=== PATIENT | male | born 1960 | race Caucasian/White ===

== ENCOUNTER 2020-06-09 17:11 | Inpatient (IN) | payer BC ==
[~2020-06-09] VITALS: Ht 182.9 cm; Wt 132.0 kg
[2020-06-09] MEDS ORDERED: DEXAMETHASONE 10 MG/ML VIAL IV ONE (17:45)
[2020-06-09 17:58] LABS: BASOPHILS % 0.7 % (0.0-2.0); EOSINOPHILS % 0.4 % (0.0-5.0); HEMATOCRIT. 54.5 % (42.0-52.0); HEMOGLOBIN. 17.4 g/dL (14.0-18.0); LYMPHOCYTES % 9.4 % (20.0-50.0); MEAN CORPUSCULAR HEMOGLOBIN 30.2 pg (28.0-32.0); MEAN CORPUSCULAR VOLUME 94.5 fL (80.0-94.0); MEAN PLATELET VOLUME 9.6 fl (7.4-10.4); MONOCYTES % 7.5 % (2.0-8.0); PLATELET 158 x1000/uL (130-400); RED BLOOD CELL COUNT 5.77 mill/uL (4.7-6.1); RED CELL DISTRIBUTION WIDTH 16.9 % (11.6-14.6)
[2020-06-09 18:04] LABS: CHLORIDE 103 mEq/L (98-107)
[2020-06-09 18:12] LABS: INR 1.2; PROTHROMBIN TIME 12.4 sec (9.6-11.0)
[2020-06-09 18:37] LABS: CLARITY URINE CLEAR (CLEAR); COLOR URINE YELLOW (YELLOW); KETONES URINE NEGATIVE (NEGATIVE); LEUKOCYTE ESTERASE URINE NEGATIVE (NEGATIVE); NITRITE URINE NEGATIVE (NEGATIVE); OCCULT BLOOD URINE TRACE (NEGATIVE); PH URINE 5.5 (4.5-8.0); PROTEIN URINE 3+ (NEGATIVE); SPECIFIC GRAVITY URINE 1.046 (1.005-1.030)
[2020-06-09] MEDS ORDERED: FUROSEMIDE 20MG/2ML VIAL IVP ONE (18:45)
[2020-06-09] MEDS ORDERED: ASPIRIN 325MG EC TABLET PO ONE (18:45)
[2020-06-10] MEDS ORDERED: ETOMIDATE 2MG/ML 10ML VIAL IV ONE (08:15)
[2020-06-10] MEDS ORDERED: SUCCINYLCHOLINE CHLORIDE 200MG/10ML IV ONE (08:15)
[2020-06-10] MEDS ORDERED: FENTANYL CITRATE/PF 50MCG/ML 2ML VIAL IV ONE (08:15)
[2020-06-10] MEDS ORDERED: PROPOFOL 10MG/ML 100ML 100 ML IV ONE ×2 (08:15→08:30)
[2020-06-10] MEDS ORDERED: PROPOFOL 10MG/ML 100ML 100 ML IV PRN (08:30)
[2020-06-10] MEDS ORDERED: IPRATROPIUM/ALBUTEROL 0.5-3(2.5)MG/3ML NEB HHN PRN (09:30)
[2020-06-10] MEDS ORDERED: AZITHROMYCIN 500 MG TABLET PO NR (09:30)
[2020-06-10] MEDS: ENOXAPARIN 40MG/0.4ML SYR SUBCUT SCH ×2 (10:00→22:08)
[2020-06-10] MEDS: PANTOPRAZOLE SODIUM 40 MG/VIAL IV SCH (10:00)
[2020-06-10] MEDS: CEFTRIAXONE 1 G PREMIX 50 ML IV SCH (10:00)
[2020-06-10] MEDS: DEXAMETHASONE 10 MG/ML VIAL IV SCH (10:15)
[2020-06-10 10:18] LABS: BG BASE EXCESS -0.8 mmol/L (-2.0-2.0); BG CARBOXYHEMOGLOBIN 0.6 % (0.5-1.5); BG FRACTION INSPIRED OXYGEN 100; BG HCO3 ACT 32.1 mmol/L (22.0-26.0); BG METHEMOGLOBIN 0.5 % (0.0-1.5); BG OXYHEMOGLOBIN 94.9 % (94.0-97.0); BG PCO2 92.9 mmHg (35.0-45.0); BG PH 7.157 (7.350-7.450); BG PO2 87.1 mmHg (75.0-100.0); BG SAMPLE SITE RIGHT RADIAL; BG TOTAL HEMOGLOBIN 18.8 g/dL (12.0-18.0); BG VENT MODE VENT - AC
[2020-06-10] MEDS: MIDAZOLAM HCL 100 MG in DEXT 5% WATER 80 ML IV PRN (10:39)
[2020-06-10 12:22] LABS: *AMPHETAMINES SCREEN URINE NEGATIVE (NEGATIVE); *BARBITURATES SCREEN URINE NEGATIVE (NEGATIVE)
[2020-06-10 12:23] LABS: *BENZODIAZEPINES SCREEN URINE NEGATIVE (NEGATIVE); *COCAINE SCREEN URINE NEGATIVE (NEGATIVE); METHADONE URINE SCREEN NEGATIVE (NEGATIVE); OPIATES URINE SCREEN NEGATIVE (NEGATIVE)
[2020-06-10 12:24] LABS: CANNABINOID URINE SCREEN NEGATIVE (NEGATIVE); PHENCYCLIDINE URINE SCREEN NEGATIVE (NEGATIVE)
[2020-06-10 13:34] LABS: BG CARBOXYHEMOGLOBIN 1.3 % (0.5-1.5); BG DEOXYHEMOGLOBIN 6.1 % (0.0-5.0); BG FRACTION INSPIRED OXYGEN 100; BG METHEMOGLOBIN 0.3 % (0.0-1.5); BG OXYGEN SATURATION 93.8 % (92.0-98.5); BG OXYHEMOGLOBIN 92.3 % (94.0-97.0); BG PCO2 67.8 mmHg (35.0-45.0); BG PH 7.318 (7.350-7.450); BG PO2 64.7 mmHg (75.0-100.0); BG SAMPLE SITE RIGHT RADIAL; BG TOTAL HEMOGLOBIN 17.2 g/dL (12.0-18.0); BG TOTAL RESPIRATORY RATE 20 b/min; BG VENT MODE VENT - PRVC
[2020-06-10] MEDS: IPRATROPIUM/ALBUTEROL 0.5-3(2.5)MG/3ML NEB HHN SCH ×2 (16:01→22:14)
[2020-06-10] MEDS: BLOOD SUGAR DIAGNOSTIC STRIP TEST SCH ×2 (17:14→21:17)
[2020-06-10] MEDS: INSULIN LISPRO 100 UNITS/ML SUBCUT SCH ×2 (17:22→21:20)
[2020-06-10 21:18] LABS: HEMOGLOBIN. 15.6 g/dL (14.0-18.0); MEAN CORPUSCULAR HEMOGLOBIN 30.2 pg (28.0-32.0); MEAN CORPUSCULAR VOLUME 94.9 fL (80.0-94.0); PLATELET 155 x1000/uL (130-400); RED BLOOD CELL COUNT 5.17 mill/uL (4.7-6.1); RED CELL DISTRIBUTION WIDTH 16.9 % (11.6-14.6)
[2020-06-10 21:22] LABS: CHLORIDE 102 mEq/L (98-107)
[2020-06-10 21:28] LABS: PHOSPHORUS 3.6 mg/dL (2.5-4.9)
[2020-06-10 22:53] LABS: PLATELET ESTIMATE NORMAL
[2020-06-11] MEDS: IPRATROPIUM/ALBUTEROL 0.5-3(2.5)MG/3ML NEB HHN SCH ×6 (01:19→20:11)
[2020-06-11] MEDS: MIDAZOLAM HCL 100 MG in DEXT 5% WATER 80 ML IV PRN ×2 (04:54→14:31)
[2020-06-11 05:18] LABS: HEMATOCRIT. 50.3 % (42.0-52.0); HEMOGLOBIN. 16.2 g/dL (14.0-18.0); MEAN CORPUSCULAR HEMOGLOBIN 30.3 pg (28.0-32.0); MEAN CORPUSCULAR VOLUME 94.3 fL (80.0-94.0); MEAN PLATELET VOLUME 8.9 fl (7.4-10.4); PLATELET 143 x1000/uL (130-400); RED BLOOD CELL COUNT 5.34 mill/uL (4.7-6.1)
[2020-06-11 05:35] LABS: CHLORIDE 103 mEq/L (98-107)
[2020-06-11] MEDS: BLOOD SUGAR DIAGNOSTIC STRIP TEST SCH ×4 (06:30→20:33)
[2020-06-11] MEDS: INSULIN LISPRO 100 UNITS/ML SUBCUT SCH ×3 (07:00→22:07)
[2020-06-11 09:01] LABS: NUCLEATED RED BLOOD CELLS 1 /100 WBC
[2020-06-11] MEDS ORDERED: LIDOCAINE HCL/PF 1% 2ML VIAL ONE (10:00)
[2020-06-11] MEDS: ENOXAPARIN 40MG/0.4ML SYR SUBCUT SCH ×2 (10:15→20:23)
[2020-06-11] MEDS: PANTOPRAZOLE SODIUM 40 MG/VIAL IV SCH (10:16)
[2020-06-11] MEDS: AZITHROMYCIN 250 MG TABLET PO SCH (10:16)
[2020-06-11] MEDS: DEXAMETHASONE 10 MG/ML VIAL IV SCH (10:16)
[2020-06-11] MEDS: CEFTRIAXONE 1 G PREMIX 50 ML IV SCH (10:30)
[2020-06-11 13:11] LABS: BG BASE EXCESS -0.8 mmol/L (-2.0-2.0); BG CARBOXYHEMOGLOBIN 0.6 % (0.5-1.5); BG DEOXYHEMOGLOBIN 1.3 % (0.0-5.0); BG FRACTION INSPIRED OXYGEN 44; BG HCO3 ACT 25.2 mmol/L (22.0-26.0); BG METHEMOGLOBIN 0.2 % (0.0-1.5); BG OXYGEN SATURATION 98.7 % (92.0-98.5); BG OXYHEMOGLOBIN 97.9 % (94.0-97.0); BG PCO2 46.9 mmHg (35.0-45.0); BG PH 7.348 (7.350-7.450); BG PO2 147.6 mmHg (75.0-100.0); BG SAMPLE SITE RIGHT RADIAL; BG TOTAL HEMOGLOBIN 13.3 g/dL (12.0-18.0); BG VENT MODE NASAL CANNULA
[2020-06-11 14:24] LABS: PLATELET ESTIMATE NORMAL
[2020-06-11] MEDS: FUROSEMIDE 40MG/4ML VIAL IVP SCH (16:13)
[2020-06-11] MEDS: METHYLPREDNISOLONE SOD SUCC 40 MG/ML VIAL IV SCH (20:21)
[2020-06-12] VITALS (14 sets, daily range): BP systolic 115–140; BP diastolic 68–91
[2020-06-12] MEDS: IPRATROPIUM/ALBUTEROL 0.5-3(2.5)MG/3ML NEB HHN SCH ×6 (00:01→20:25)
[2020-06-12] MEDS: MIDAZOLAM HCL 100 MG in DEXT 5% WATER 80 ML IV PRN ×2 (01:38→18:30)
[2020-06-12 05:08] LABS: HEMATOCRIT. 53.1 % (42.0-52.0); HEMOGLOBIN. 17.1 g/dL (14.0-18.0); MEAN CORPUSCULAR HEMOGLOBIN 30.1 pg (28.0-32.0); MEAN CORPUSCULAR VOLUME 93.4 fL (80.0-94.0); MEAN PLATELET VOLUME 9.4 fl (7.4-10.4); PLATELET 140 x1000/uL (130-400); RED BLOOD CELL COUNT 5.69 mill/uL (4.7-6.1); RED CELL DISTRIBUTION WIDTH 16.9 % (11.6-14.6)
[2020-06-12 05:13] LABS: CHLORIDE 102 mEq/L (98-107)
[2020-06-12] MEDS: METHYLPREDNISOLONE SOD SUCC 40 MG/ML VIAL IV SCH ×3 (05:44→20:59)
[2020-06-12] MEDS: BLOOD SUGAR DIAGNOSTIC STRIP TEST SCH ×4 (06:57→21:07)
[2020-06-12] MEDS: INSULIN LISPRO 100 UNITS/ML SUBCUT SCH ×4 (08:09→21:08)
[2020-06-12] MEDS: PANTOPRAZOLE SODIUM 40 MG/VIAL IV SCH (08:10)
[2020-06-12] MEDS: FUROSEMIDE 40MG/4ML VIAL IVP SCH (08:12)
[2020-06-12] MEDS: ENOXAPARIN 40MG/0.4ML SYR SUBCUT SCH ×2 (08:13→21:24)
[2020-06-12] MEDS ORDERED: FUROSEMIDE 20MG/2ML VIAL IVP NR (10:00)
[2020-06-12] MEDS: AZITHROMYCIN 250 MG TABLET PO SCH (10:00)
[2020-06-12 10:05] LABS: BG BASE EXCESS 6.8 mmol/L (-2.0-2.0); BG CARBOXYHEMOGLOBIN 0.5 % (0.5-1.5); BG DEOXYHEMOGLOBIN 8.2 % (0.0-5.0); BG FRACTION INSPIRED OXYGEN 100; BG HCO3 ACT 33.7 mmol/L (22.0-26.0); BG METHEMOGLOBIN 0.3 % (0.0-1.5); BG OXYGEN SATURATION 91.7 % (92.0-98.5); BG PCO2 54.9 mmHg (35.0-45.0); BG PH 7.406 (7.350-7.450); BG PO2 62.8 mmHg (75.0-100.0); BG SAMPLE SITE LEFT RADIAL; BG TOTAL RESPIRATORY RATE 20 b/min; BG VENT MODE PRVC
[2020-06-12] MEDS ORDERED: CEFEPIME 2,000 MG in DEXT 5% WATER 100 ML IV SCH (11:00)
[2020-06-12] MEDS ORDERED: VANCOMYCIN 2,000 MG in DEXT 5% WATER 500 ML IV NR (11:00)
[2020-06-12 16:21] LABS: PLATELET ESTIMATE NORMAL
[2020-06-12] MEDS: FENTANYL CITRATE/PF 2,500 MCG in SODIUM CHLORIDE 0.9% 200 ML IV PRN (17:00)
[2020-06-12] MEDS ORDERED: CANA100T MT (17:50)
[2020-06-12] MEDS ORDERED: LIP40 MT (17:50)
[2020-06-12] MEDS ORDERED: GLIP5TAB12 MT (17:50)
[2020-06-12] MEDS ORDERED: SITA1TAB6 MT (17:50)
[2020-06-12] MEDS: VANCOMYCIN 1250MG in DEXTROSE 5% WATER 250ML IV SCH (18:16)
[2020-06-12] MEDS ORDERED: PNEUMOCOCCAL 23-VAL P-SAC VAC 0.5 ML IM ONE (20:00)
[2020-06-12] MEDS ORDERED: INFLUENZA VACCINE 05/PF 0.5 ML VIAL IM ONE (21:00)
[2020-06-13] VITALS (47 sets, daily range): BP systolic 110–146; BP diastolic 60–78
[2020-06-13] MEDS: IPRATROPIUM/ALBUTEROL 0.5-3(2.5)MG/3ML NEB HHN SCH ×6 (00:34→20:39)
[2020-06-13] MEDS: CEFEPIME 2,000 MG in DEXT 5% WATER 100 ML IV SCH ×2 (00:41→11:45)
[2020-06-13] MEDS: MIDAZOLAM HCL 100 MG in DEXT 5% WATER 80 ML IV PRN ×4 (00:42→21:33)
[2020-06-13] MEDS: FENTANYL CITRATE/PF 2,500 MCG in SODIUM CHLORIDE 0.9% 200 ML IV PRN ×2 (02:44→17:30)
[2020-06-13] MEDS: VANCOMYCIN 1250MG in DEXTROSE 5% WATER 250ML IV SCH ×3 (02:51→18:10)
[2020-06-13] MEDS: METHYLPREDNISOLONE SOD SUCC 40 MG/ML VIAL IV SCH ×3 (03:43→20:46)
[2020-06-13 06:22] LABS: CHLORIDE 102 mEq/L (98-107)
[2020-06-13 06:26] LABS: HEMATOCRIT. 52.6 % (42.0-52.0); HEMOGLOBIN. 17.2 g/dL (14.0-18.0); MEAN CORPUSCULAR HEMOGLOBIN 30.7 pg (28.0-32.0); MEAN CORPUSCULAR VOLUME 94.1 fL (80.0-94.0); MEAN PLATELET VOLUME 9.2 fl (7.4-10.4); PLATELET 137 x1000/uL (130-400); RED BLOOD CELL COUNT 5.59 mill/uL (4.7-6.1); RED CELL DISTRIBUTION WIDTH 17.3 % (11.6-14.6)
[2020-06-13] MEDS: BLOOD SUGAR DIAGNOSTIC STRIP TEST SCH ×3 (08:34→18:03)
[2020-06-13] MEDS: ENOXAPARIN 40MG/0.4ML SYR SUBCUT SCH ×2 (08:54→21:42)
[2020-06-13] MEDS: AZITHROMYCIN 250 MG TABLET PO SCH (08:54)
[2020-06-13] MEDS: FUROSEMIDE 40MG/4ML VIAL IVP SCH (08:54)
[2020-06-13] MEDS: PANTOPRAZOLE SODIUM 40 MG/VIAL IV SCH (08:54)
[2020-06-13] MEDS: INSULIN LISPRO 100 UNITS/ML SUBCUT SCH ×3 (08:57→18:10)
[2020-06-13 09:11] LABS: BG BASE EXCESS 7.1 mmol/L (-2.0-2.0); BG CARBOXYHEMOGLOBIN 0.5 % (0.5-1.5); BG DEOXYHEMOGLOBIN 7.4 % (0.0-5.0); BG FRACTION INSPIRED OXYGEN 100; BG HCO3 ACT 32.8 mmol/L (22.0-26.0); BG METHEMOGLOBIN 0.3 % (0.0-1.5); BG OXYGEN SATURATION 92.5 % (92.0-98.5); BG OXYHEMOGLOBIN 91.8 % (94.0-97.0); BG PCO2 49.3 mmHg (35.0-45.0); BG PH 7.441 (7.350-7.450); BG PO2 64.3 mmHg (75.0-100.0); BG SAMPLE SITE LEFT RADIAL; BG TOTAL HEMOGLOBIN 17.5 g/dL (12.0-18.0); BG TOTAL RESPIRATORY RATE 20 b/min; BG VENT MODE PRVC
[2020-06-13 10:19] LABS: PLATELET ESTIMATE NORMAL
[2020-06-13] MEDS: METOCLOPRAMIDE HCL 10MG/2ML VIAL IV SCH ×2 (11:45→18:11)
[2020-06-13] MEDS: INSULIN GLARGINE UD 100 UNITS/ML SYR SUBCUT SCH ×2 (11:46→21:42)
[2020-06-13] MEDS: BISACODYL 10MG SUPP PR PRN (15:13)
[2020-06-14] VITALS (65 sets, daily range): BP systolic 111–162; BP diastolic 67–119
[2020-06-14] MEDS: IPRATROPIUM/ALBUTEROL 0.5-3(2.5)MG/3ML NEB HHN SCH ×6 (00:25→20:07)
[2020-06-14] MEDS: BLOOD SUGAR DIAGNOSTIC STRIP TEST SCH ×4 (00:26→17:37)
[2020-06-14] MEDS: METOCLOPRAMIDE HCL 10MG/2ML VIAL IV SCH ×4 (00:26→17:44)
[2020-06-14] MEDS: CEFEPIME 2,000 MG in DEXT 5% WATER 100 ML IV SCH ×2 (00:26→12:39)
[2020-06-14] MEDS: INSULIN LISPRO 100 UNITS/ML SUBCUT SCH ×4 (00:27→17:43)
[2020-06-14] MEDS: VANCOMYCIN 1250MG in DEXTROSE 5% WATER 250ML IV SCH (03:30)
[2020-06-14] MEDS: MIDAZOLAM HCL 100 MG in DEXT 5% WATER 80 ML IV PRN ×3 (03:55→20:59)
[2020-06-14] MEDS: METHYLPREDNISOLONE SOD SUCC 40 MG/ML VIAL IV SCH ×3 (04:00→20:14)
[2020-06-14 06:02] LABS: HEMATOCRIT. 51.4 % (42.0-52.0); HEMOGLOBIN. 16.4 g/dL (14.0-18.0); MEAN CORPUSCULAR HEMOGLOBIN 29.9 pg (28.0-32.0); MEAN CORPUSCULAR VOLUME 93.7 fL (80.0-94.0); MEAN PLATELET VOLUME 9.2 fl (7.4-10.4); PLATELET 123 x1000/uL (130-400); RED BLOOD CELL COUNT 5.49 mill/uL (4.7-6.1); RED CELL DISTRIBUTION WIDTH 16.5 % (11.6-14.6)
[2020-06-14 06:10] LABS: CHLORIDE 100 mEq/L (98-107)
[2020-06-14 07:21] LABS: PLATELET ESTIMATE SLIGHTLY DECREASED
[2020-06-14] MEDS: FENTANYL CITRATE/PF 2,500 MCG in SODIUM CHLORIDE 0.9% 200 ML IV PRN ×2 (07:39→22:40)
[2020-06-14] MEDS: INSULIN GLARGINE UD 100 UNITS/ML SYR SUBCUT SCH (09:12)
[2020-06-14] MEDS: PANTOPRAZOLE SODIUM 40 MG/VIAL IV SCH (09:12)
[2020-06-14] MEDS: AZITHROMYCIN 250 MG TABLET PO SCH (09:12)
[2020-06-14] MEDS: FUROSEMIDE 40MG/4ML VIAL IVP SCH (09:12)
[2020-06-14] MEDS: ENOXAPARIN 40MG/0.4ML SYR SUBCUT SCH ×2 (09:12→20:52)
[2020-06-14] MEDS ORDERED: SUCCINYLCHOLINE CHLORIDE 200MG/10ML IV ONE ×3 (20:00→22:00)
[2020-06-14] MEDS ORDERED: ETOMIDATE 2MG/ML 10ML VIAL IV ONE ×2 (20:00→22:00)
[2020-06-14 20:33] LABS: BG BASE EXCESS 1.7 mmol/L (-2.0-2.0); BG CARBOXYHEMOGLOBIN 0.6 % (0.5-1.5); BG FRACTION INSPIRED OXYGEN 100; BG HCO3 ACT 28.2 mmol/L (22.0-26.0); BG METHEMOGLOBIN 0.4 % (0.0-1.5); BG OXYGEN SATURATION 93.9 % (92.0-98.5); BG PCO2 50.4 mmHg (35.0-45.0); BG PH 7.365 (7.350-7.450); BG PO2 72.1 mmHg (75.0-100.0); BG SAMPLE SITE RIGHT RADIAL; BG TOTAL HEMOGLOBIN 17.5 g/dL (12.0-18.0); BG VENT MODE VENT - APRV
[2020-06-14] MEDS ORDERED: INSULIN GLARGINE UD 100 UNITS/ML SYR SUBCUT SCH (22:00)
[2020-06-15] VITALS (91 sets, daily range): BP systolic 100–158; BP diastolic 61–116
[2020-06-15] MEDS: IPRATROPIUM/ALBUTEROL 0.5-3(2.5)MG/3ML NEB HHN SCH ×6 (00:09→20:43)
[2020-06-15] MEDS: CEFEPIME 2,000 MG in DEXT 5% WATER 100 ML IV SCH ×3 (01:28→23:31)
[2020-06-15] MEDS: INSULIN LISPRO 100 UNITS/ML SUBCUT SCH ×5 (01:40→23:33)
[2020-06-15 02:21] LABS: BG BASE EXCESS 2.4 mmol/L (-2.0-2.0); BG FRACTION INSPIRED OXYGEN 100; BG HCO3 ACT 34.2 mmol/L (22.0-26.0); BG METHEMOGLOBIN 0.5 % (0.0-1.5); BG OXYHEMOGLOBIN 93.5 % (94.0-97.0); BG PCO2 85.8 mmHg (35.0-45.0); BG PH 7.219 (7.350-7.450); BG PO2 81.9 mmHg (75.0-100.0); BG SAMPLE SITE RIGHT RADIAL; BG TOTAL HEMOGLOBIN 18.4 g/dL (12.0-18.0); BG VENT MODE VENT - APRV
[2020-06-15] MEDS: PROPOFOL 10MG/ML 100ML 100 ML IV PRN ×2 (03:08→11:06)
[2020-06-15] MEDS: METHYLPREDNISOLONE SOD SUCC 40 MG/ML VIAL IV SCH ×3 (04:29→19:56)
[2020-06-15] MEDS: MIDAZOLAM HCL 100 MG in DEXT 5% WATER 80 ML IV PRN ×3 (04:37→19:56)
[2020-06-15] MEDS: METOCLOPRAMIDE HCL 10MG/2ML VIAL IV SCH ×5 (06:22→23:31)
[2020-06-15 06:25] LABS: HEMATOCRIT. 52.8 % (42.0-52.0); HEMOGLOBIN. 16.8 g/dL (14.0-18.0); MEAN CORPUSCULAR HEMOGLOBIN 29.8 pg (28.0-32.0); MEAN CORPUSCULAR VOLUME 93.3 fL (80.0-94.0); MEAN PLATELET VOLUME 9.2 fl (7.4-10.4); PLATELET 111 x1000/uL (130-400); RED BLOOD CELL COUNT 5.66 mill/uL (4.7-6.1); RED CELL DISTRIBUTION WIDTH 16.8 % (11.6-14.6)
[2020-06-15] MEDS: BLOOD SUGAR DIAGNOSTIC STRIP TEST SCH ×5 (06:53→23:19)
[2020-06-15] MEDS ORDERED: SODIUM BICARBONATE 4% (2.4MEQ) 5ML VIAL IV ONE (07:33)
[2020-06-15] MEDS ORDERED: LIDOCAINE HCL 1% 20ML VIAL (Pyxis) INJ ONE (07:33)
[2020-06-15 08:42] LABS: CHLORIDE 103 mEq/L (98-107)
[2020-06-15 09:10] LABS: BG BASE EXCESS 5.5 mmol/L (-2.0-2.0); BG CARBOXYHEMOGLOBIN 0.6 % (0.5-1.5); BG DEOXYHEMOGLOBIN 4.8 % (0.0-5.0); BG FRACTION INSPIRED OXYGEN 100; BG HCO3 ACT 27.4 mmol/L (22.0-26.0); BG METHEMOGLOBIN 0.4 % (0.0-1.5); BG OXYGEN SATURATION 95.2 % (92.0-98.5); BG OXYHEMOGLOBIN 94.2 % (94.0-97.0); BG PCO2 32.4 mmHg (35.0-45.0); BG PH 7.545 (7.350-7.450); BG PO2 67.7 mmHg (75.0-100.0); BG SAMPLE SITE RIGHT RADIAL; BG TOTAL HEMOGLOBIN 17.5 g/dL (12.0-18.0); BG TOTAL RESPIRATORY RATE 30 b/min; BG VENT MODE VENT- PRVC
[2020-06-15] MEDS: PANTOPRAZOLE SODIUM 40 MG/VIAL IV SCH (09:51)
[2020-06-15] MEDS: ENOXAPARIN 40MG/0.4ML SYR SUBCUT SCH ×2 (09:52→19:56)
[2020-06-15] MEDS: FUROSEMIDE 40MG/4ML VIAL IVP SCH ×2 (10:05→17:49)
[2020-06-15] MEDS: INSULIN GLARGINE UD 100 UNITS/ML SYR SUBCUT SCH ×2 (11:15→23:32)
[2020-06-15 11:31] LABS: PLATELET ESTIMATE SLIGHTLY DECREASED
[2020-06-15] MEDS: FENTANYL CITRATE/PF 2,500 MCG in SODIUM CHLORIDE 0.9% 200 ML IV PRN (12:34)
[2020-06-15] MEDS ORDERED: SUCCINYLCHOLINE CHLORIDE 200MG/10ML IV ONE (20:00)
[2020-06-15] MEDS ORDERED: ETOMIDATE 2MG/ML 10ML VIAL IV ONE (20:00)
[2020-06-16] VITALS (84 sets, daily range): BP systolic 103–158; BP diastolic 55–100
[2020-06-16] MEDS: IPRATROPIUM/ALBUTEROL 0.5-3(2.5)MG/3ML NEB HHN SCH ×6 (00:21→20:17)
[2020-06-16] MEDS: PROPOFOL 10MG/ML 100ML 100 ML IV PRN ×2 (00:26→09:26)
[2020-06-16] MEDS: FENTANYL CITRATE/PF 2,500 MCG in SODIUM CHLORIDE 0.9% 200 ML IV PRN ×2 (00:52→13:36)
[2020-06-16] MEDS: MIDAZOLAM HCL 100 MG in DEXT 5% WATER 80 ML IV PRN ×3 (03:31→23:56)
[2020-06-16] MEDS: BLOOD SUGAR DIAGNOSTIC STRIP TEST SCH ×4 (05:47→23:45)
[2020-06-16] MEDS: METHYLPREDNISOLONE SOD SUCC 40 MG/ML VIAL IV SCH ×4 (05:47→17:45)
[2020-06-16] MEDS: METOCLOPRAMIDE HCL 10MG/2ML VIAL IV SCH ×3 (05:47→17:46)
[2020-06-16] MEDS: INSULIN LISPRO 100 UNITS/ML SUBCUT SCH ×4 (05:48→23:32)
[2020-06-16 06:46] LABS: CHLORIDE 102 mEq/L (98-107)
[2020-06-16 06:48] LABS: HEMOGLOBIN. 16.1 g/dL (14.0-18.0); MEAN CORPUSCULAR HEMOGLOBIN 30.6 pg (28.0-32.0); MEAN PLATELET VOLUME 9.5 fl (7.4-10.4); PLATELET 107 x1000/uL (130-400); RED BLOOD CELL COUNT 5.27 mill/uL (4.7-6.1); RED CELL DISTRIBUTION WIDTH 16.4 % (11.6-14.6)
[2020-06-16 08:22] LABS: BG BASE EXCESS 8.1 mmol/L (-2.0-2.0); BG CARBOXYHEMOGLOBIN 0.2 % (0.5-1.5); BG DEOXYHEMOGLOBIN 3.2 % (0.0-5.0); BG FRACTION INSPIRED OXYGEN 100; BG METHEMOGLOBIN 0.2 % (0.0-1.5); BG OXYGEN SATURATION 96.8 % (92.0-98.5); BG OXYHEMOGLOBIN 96.4 % (94.0-97.0); BG PCO2 30.1 mmHg (35.0-45.0); BG PH 7.602 (7.350-7.450); BG PO2 79.7 mmHg (75.0-100.0); BG SAMPLE SITE LEFT RADIAL; BG TOTAL HEMOGLOBIN 16.8 g/dL (12.0-18.0); BG TOTAL RESPIRATORY RATE 25 b/min; BG VENT MODE VENT- PRVC
[2020-06-16] MEDS: PANTOPRAZOLE SODIUM 40 MG/VIAL IV SCH (09:19)
[2020-06-16] MEDS: FUROSEMIDE 40MG/4ML VIAL IVP SCH ×2 (09:20→17:45)
[2020-06-16] MEDS: ENOXAPARIN 40MG/0.4ML SYR SUBCUT SCH ×2 (09:21→21:31)
[2020-06-16] MEDS: INSULIN GLARGINE UD 100 UNITS/ML SYR SUBCUT SCH ×2 (09:26→23:30)
[2020-06-16 10:56] LABS: PLATELET ESTIMATE DECREASED
[2020-06-16 11:09] LABS: BG BASE EXCESS 5.2 mmol/L (-2.0-2.0); BG CARBOXYHEMOGLOBIN 0.5 % (0.5-1.5); BG DEOXYHEMOGLOBIN 5.6 % (0.0-5.0); BG FRACTION INSPIRED OXYGEN 100; BG HCO3 ACT 30.3 mmol/L (22.0-26.0); BG METHEMOGLOBIN 0.4 % (0.0-1.5); BG OXYGEN SATURATION 94.3 % (92.0-98.5); BG OXYHEMOGLOBIN 93.5 % (94.0-97.0); BG PCO2 45.5 mmHg (35.0-45.0); BG PH 7.442 (7.350-7.450); BG SAMPLE SITE LEFT RADIAL; BG TOTAL HEMOGLOBIN 17.5 g/dL (12.0-18.0); BG VENT MODE VENT - AC
[2020-06-16] MEDS ORDERED: ACETAZOLAMIDE SODIUM 500MG/VIAL IV NR (11:30)
[2020-06-16] MEDS: CEFEPIME 2,000 MG in DEXT 5% WATER 100 ML IV SCH (11:44)
[2020-06-17] VITALS (45 sets, daily range): BP systolic 105–163; BP diastolic 56–127
[2020-06-17] MEDS: IPRATROPIUM/ALBUTEROL 0.5-3(2.5)MG/3ML NEB HHN SCH ×6 (00:29→20:26)
[2020-06-17] MEDS: METOCLOPRAMIDE HCL 10MG/2ML VIAL IV SCH ×4 (00:35→17:37)
[2020-06-17] MEDS: CEFEPIME 2,000 MG in DEXT 5% WATER 100 ML IV SCH ×2 (00:35→13:01)
[2020-06-17] MEDS: PROPOFOL 10MG/ML 100ML 100 ML IV PRN ×4 (00:48→21:06)
[2020-06-17] MEDS: FENTANYL CITRATE/PF 2,500 MCG in SODIUM CHLORIDE 0.9% 200 ML IV PRN ×2 (02:48→17:07)
[2020-06-17] MEDS: BLOOD SUGAR DIAGNOSTIC STRIP TEST SCH ×3 (06:00→18:40)
[2020-06-17 06:33] LABS: HEMATOCRIT. 53.1 % (42.0-52.0); HEMOGLOBIN. 17.2 g/dL (14.0-18.0); MEAN CORPUSCULAR HEMOGLOBIN 30.4 pg (28.0-32.0); MEAN PLATELET VOLUME 9.3 fl (7.4-10.4); PLATELET 61 x1000/uL (130-400); RED BLOOD CELL COUNT 5.65 mill/uL (4.7-6.1); RED CELL DISTRIBUTION WIDTH 16.8 % (11.6-14.6)
[2020-06-17 06:49] LABS: CHLORIDE 106 mEq/L (98-107)
[2020-06-17] MEDS: FUROSEMIDE 40MG/4ML VIAL IVP SCH ×2 (07:05→17:37)
[2020-06-17] MEDS: INSULIN LISPRO 100 UNITS/ML SUBCUT SCH ×3 (07:57→18:00)
[2020-06-17] MEDS: GLIPIZIDE 5MG TABLET PO SCH (07:57)
[2020-06-17] MEDS: METHYLPREDNISOLONE SOD SUCC 40 MG/ML VIAL IV SCH ×2 (08:08→17:37)
[2020-06-17] MEDS: PANTOPRAZOLE SODIUM 40 MG/VIAL IV SCH (08:08)
[2020-06-17] MEDS: ENOXAPARIN 40MG/0.4ML SYR SUBCUT SCH (09:00)
[2020-06-17 09:03] LABS: PLATELET ESTIMATE DECREASED
[2020-06-17 10:06] LABS: BG BASE EXCESS 2.7 mmol/L (-2.0-2.0); BG DEOXYHEMOGLOBIN 0.8 % (0.0-5.0); BG FRACTION INSPIRED OXYGEN 100; BG HCO3 ACT 27.3 mmol/L (22.0-26.0); BG METHEMOGLOBIN 0.4 % (0.0-1.5); BG OXYGEN SATURATION 99.2 % (92.0-98.5); BG OXYHEMOGLOBIN 97.8 % (94.0-97.0); BG PCO2 41.8 mmHg (35.0-45.0); BG PH 7.433 (7.350-7.450); BG PO2 142.3 mmHg (75.0-100.0); BG SAMPLE SITE RIGHT RADIAL; BG TOTAL HEMOGLOBIN 17.6 g/dL (12.0-18.0); BG VENT MODE VENT - AC
[2020-06-17] MEDS: INSULIN GLARGINE UD 100 UNITS/ML SYR SUBCUT SCH (11:04)
[2020-06-18] VITALS (34 sets, daily range): BP systolic 112–145; BP diastolic 59–107
[2020-06-18] MEDS: CEFEPIME 2,000 MG in DEXT 5% WATER 100 ML IV SCH (00:06)
[2020-06-18] MEDS: METOCLOPRAMIDE HCL 10MG/2ML VIAL IV SCH ×4 (00:06→19:17)
[2020-06-18] MEDS: INSULIN GLARGINE UD 100 UNITS/ML SYR SUBCUT SCH ×2 (00:08→11:29)
[2020-06-18] MEDS: INSULIN LISPRO 100 UNITS/ML SUBCUT SCH ×4 (00:09→19:20)
[2020-06-18] MEDS: BLOOD SUGAR DIAGNOSTIC STRIP TEST SCH ×4 (00:11→18:00)
[2020-06-18] MEDS: IPRATROPIUM/ALBUTEROL 0.5-3(2.5)MG/3ML NEB HHN SCH ×6 (00:21→20:10)
[2020-06-18] MEDS: PROPOFOL 10MG/ML 100ML 100 ML IV PRN ×2 (00:27→04:30)
[2020-06-18 06:26] LABS: HEMATOCRIT. 53.3 % (42.0-52.0); HEMOGLOBIN. 16.9 g/dL (14.0-18.0); MEAN CORPUSCULAR HEMOGLOBIN 29.5 pg (28.0-32.0); MEAN CORPUSCULAR VOLUME 93.1 fL (80.0-94.0); MEAN PLATELET VOLUME 10.4 fl (7.4-10.4); PLATELET 91 x1000/uL (130-400); RED BLOOD CELL COUNT 5.73 mill/uL (4.7-6.1); RED CELL DISTRIBUTION WIDTH 16.6 % (11.6-14.6)
[2020-06-18] MEDS: FUROSEMIDE 40MG/4ML VIAL IVP SCH ×2 (06:28→19:16)
[2020-06-18 06:36] LABS: CHLORIDE 105 mEq/L (98-107)
[2020-06-18] MEDS: FENTANYL CITRATE/PF 2,500 MCG in SODIUM CHLORIDE 0.9% 200 ML IV PRN ×2 (07:32→22:22)
[2020-06-18] MEDS: MIDAZOLAM HCL 100 MG in DEXT 5% WATER 80 ML IV PRN ×2 (07:33→17:18)
[2020-06-18] MEDS: PANTOPRAZOLE SODIUM 40 MG/VIAL IV SCH (08:46)
[2020-06-18] MEDS: GLIPIZIDE 5MG TABLET PO SCH ×2 (08:46→19:17)
[2020-06-18] MEDS: METHYLPREDNISOLONE SOD SUCC 40 MG/ML VIAL IV SCH ×2 (08:46→19:17)
[2020-06-18 09:02] LABS: BG BASE EXCESS 1.3 mmol/L (-2.0-2.0); BG CARBOXYHEMOGLOBIN 0.9 % (0.5-1.5); BG DEOXYHEMOGLOBIN 3.6 % (0.0-5.0); BG HCO3 ACT 28.5 mmol/L (22.0-26.0); BG METHEMOGLOBIN 0.6 % (0.0-1.5); BG OXYGEN SATURATION 96.3 % (92.0-98.5); BG OXYHEMOGLOBIN 94.9 % (94.0-97.0); BG PCO2 54.2 mmHg (35.0-45.0); BG PH 7.339 (7.350-7.450); BG PO2 89.5 mmHg (75.0-100.0); BG SAMPLE SITE LEFT RADIAL; BG TOTAL HEMOGLOBIN 17.9 g/dL (12.0-18.0); BG VENT MODE VENT - AC
[2020-06-18 10:44] LABS: PLATELET ESTIMATE DECREASED
[2020-06-18] MEDS: NYSTATIN POWDER 15GM TOP SCH ×2 (13:47→19:20)
[2020-06-19] VITALS (37 sets, daily range): BP systolic 109–148; BP diastolic 63–91
[2020-06-19] MEDS: IPRATROPIUM/ALBUTEROL 0.5-3(2.5)MG/3ML NEB HHN SCH ×7 (00:25→23:55)
[2020-06-19] MEDS: METOCLOPRAMIDE HCL 10MG/2ML VIAL IV SCH ×5 (00:57→23:32)
[2020-06-19] MEDS: BLOOD SUGAR DIAGNOSTIC STRIP TEST SCH ×5 (00:57→23:33)
[2020-06-19] MEDS: INSULIN LISPRO 100 UNITS/ML SUBCUT SCH ×5 (00:58→23:33)
[2020-06-19] MEDS: INSULIN GLARGINE UD 100 UNITS/ML SYR SUBCUT SCH ×3 (00:59→21:39)
[2020-06-19] MEDS: MIDAZOLAM HCL 100 MG in DEXT 5% WATER 80 ML IV PRN ×2 (04:00→14:36)
[2020-06-19] MEDS: FENTANYL CITRATE/PF 2,500 MCG in SODIUM CHLORIDE 0.9% 200 ML IV PRN ×3 (05:01→21:38)
[2020-06-19 06:04] LABS: CHLORIDE 106 mEq/L (98-107)
[2020-06-19 06:16] LABS: HEMATOCRIT. 52.4 % (42.0-52.0); MEAN CORPUSCULAR HEMOGLOBIN 30.3 pg (28.0-32.0); MEAN CORPUSCULAR VOLUME 93.1 fL (80.0-94.0); MEAN PLATELET VOLUME 10.1 fl (7.4-10.4); PLATELET 78 x1000/uL (130-400); RED BLOOD CELL COUNT 5.63 mill/uL (4.7-6.1); RED CELL DISTRIBUTION WIDTH 16.2 % (11.6-14.6)
[2020-06-19] MEDS: FUROSEMIDE 40MG/4ML VIAL IVP SCH ×2 (06:19→19:05)
[2020-06-19 08:13] LABS: BG BASE EXCESS 2.9 mmol/L (-2.0-2.0); BG CARBOXYHEMOGLOBIN 0.3 % (0.5-1.5); BG DEOXYHEMOGLOBIN 5.4 % (0.0-5.0); BG FRACTION INSPIRED OXYGEN 80; BG HCO3 ACT 30.2 mmol/L (22.0-26.0); BG METHEMOGLOBIN 0.6 % (0.0-1.5); BG OXYGEN SATURATION 94.6 % (92.0-98.5); BG OXYHEMOGLOBIN 93.7 % (94.0-97.0); BG PCO2 54.6 mmHg (35.0-45.0); BG PH 7.361 (7.350-7.450); BG PO2 96.2 mmHg (75.0-100.0); BG SAMPLE SITE LEFT RADIAL; BG TOTAL HEMOGLOBIN 19.6 g/dL (12.0-18.0); BG TOTAL RESPIRATORY RATE 20 b/min; BG VENT MODE VENT - AC
[2020-06-19 08:36] LABS: PLATELET ESTIMATE DECREASED
[2020-06-19] MEDS: METHYLPREDNISOLONE SOD SUCC 40 MG/ML VIAL IV SCH ×3 (08:39→23:32)
[2020-06-19] MEDS: GLIPIZIDE 5MG TABLET PO SCH ×2 (08:39→19:05)
[2020-06-19] MEDS: PANTOPRAZOLE SODIUM 40 MG/VIAL IV SCH (08:39)
[2020-06-19] MEDS: NYSTATIN POWDER 15GM TOP SCH ×3 (08:39→19:06)
[2020-06-19] MEDS ORDERED: POTASSIUM CHLORIDE 20MEQ/PACKET PO NR (09:00)
[2020-06-19] MEDS: BISACODYL 10MG SUPP PR PRN (10:09)
[2020-06-19] MEDS: ACETYLCYSTEINE 100MG/ML 10% VIAL 4ML INH SCH ×2 (16:18→23:56)
[2020-06-19] MEDS: QUETIAPINE FUMARATE 25MG TABLET PO SCH (21:15)
[2020-06-20] VITALS (38 sets, daily range): BP systolic 108–156; BP diastolic 60–96
[2020-06-20] MEDS: MIDAZOLAM HCL 100 MG in DEXT 5% WATER 80 ML IV PRN ×3 (01:23→19:15)
[2020-06-20] MEDS: IPRATROPIUM/ALBUTEROL 0.5-3(2.5)MG/3ML NEB HHN SCH ×5 (03:52→20:40)
[2020-06-20] MEDS: METOCLOPRAMIDE HCL 10MG/2ML VIAL IV SCH ×4 (05:28→23:35)
[2020-06-20] MEDS: INSULIN LISPRO 100 UNITS/ML SUBCUT SCH ×4 (05:29→23:36)
[2020-06-20] MEDS: BLOOD SUGAR DIAGNOSTIC STRIP TEST SCH ×4 (05:29→22:23)
[2020-06-20] MEDS: FENTANYL CITRATE/PF 2,500 MCG in SODIUM CHLORIDE 0.9% 200 ML IV PRN ×3 (05:39→23:40)
[2020-06-20 05:48] LABS: HEMATOCRIT. 56.1 % (42.0-52.0); HEMOGLOBIN. 18.3 g/dL (14.0-18.0); MEAN CORPUSCULAR HEMOGLOBIN 30.2 pg (28.0-32.0); MEAN PLATELET VOLUME 10.1 fl (7.4-10.4); PLATELET 78 x1000/uL (130-400); RED BLOOD CELL COUNT 6.03 mill/uL (4.7-6.1); RED CELL DISTRIBUTION WIDTH 16.2 % (11.6-14.6)
[2020-06-20 05:59] LABS: CHLORIDE 108 mEq/L (98-107)
[2020-06-20] MEDS: ACETYLCYSTEINE 100MG/ML 10% VIAL 4ML INH SCH ×3 (07:39→22:00)
[2020-06-20] MEDS: FUROSEMIDE 40MG/4ML VIAL IVP SCH ×2 (08:29→17:33)
[2020-06-20] MEDS: PANTOPRAZOLE SODIUM 40 MG/VIAL IV SCH (08:29)
[2020-06-20] MEDS: GLIPIZIDE 5MG TABLET PO SCH ×2 (08:29→17:33)
[2020-06-20] MEDS: QUETIAPINE FUMARATE 25MG TABLET PO SCH ×2 (08:29→21:38)
[2020-06-20] MEDS: METHYLPREDNISOLONE SOD SUCC 40 MG/ML VIAL IV SCH ×3 (08:29→22:44)
[2020-06-20] MEDS: NYSTATIN POWDER 15GM TOP SCH ×3 (08:30→17:35)
[2020-06-20] MEDS: INSULIN GLARGINE UD 100 UNITS/ML SYR SUBCUT SCH ×2 (09:24→22:38)
[2020-06-20 10:30] LABS: PLATELET ESTIMATE DECREASED
[2020-06-20 10:35] LABS: BG BASE EXCESS 6.3 mmol/L (-2.0-2.0); BG CARBOXYHEMOGLOBIN 0.2 % (0.5-1.5); BG DEOXYHEMOGLOBIN 2.4 % (0.0-5.0); BG FRACTION INSPIRED OXYGEN 90; BG HCO3 ACT 30.2 mmol/L (22.0-26.0); BG METHEMOGLOBIN 0.6 % (0.0-1.5); BG OXYGEN SATURATION 97.6 % (92.0-98.5); BG OXYHEMOGLOBIN 96.8 % (94.0-97.0); BG PCO2 40.6 mmHg (35.0-45.0); BG SAMPLE SITE RIGHT RADIAL; BG TOTAL HEMOGLOBIN 19.7 g/dL (12.0-18.0); BG VENT MODE VENT - AC
[2020-06-20] MEDS: ASCORBIC ACID 500 MG TABLET NG SCH (13:13)
[2020-06-20] MEDS: ZINC SULFATE 220 MG ( 50 ) CAPSULE NG SCH (13:13)
[2020-06-20] MEDS ORDERED: FENTANYL CITRATE/PF 2,500 MCG in SODIUM CHLORIDE 0.9% 200 ML IV PRN (16:45)
[2020-06-20 18:35] LABS: BG BASE EXCESS 4.3 mmol/L (-2.0-2.0); BG CARBOXYHEMOGLOBIN 0.3 % (0.5-1.5); BG DEOXYHEMOGLOBIN 0.6 % (0.0-5.0); BG FRACTION INSPIRED OXYGEN 90; BG HCO3 ACT 28.6 mmol/L (22.0-26.0); BG METHEMOGLOBIN 0.7 % (0.0-1.5); BG OXYGEN SATURATION 99.4 % (92.0-98.5); BG OXYHEMOGLOBIN 98.4 % (94.0-97.0); BG PCO2 41.1 mmHg (35.0-45.0); BG PO2 256.6 mmHg (75.0-100.0); BG SAMPLE SITE RIGHT RADIAL; BG TOTAL HEMOGLOBIN 19.7 g/dL (12.0-18.0); BG VENT MODE VENT - AC
[2020-06-20] MEDS: SODIUM CHLORIDE 3% FOR INH 4ML UD NEB INH SCH (20:00)
[2020-06-21] VITALS (77 sets, daily range): BP systolic 102–160; BP diastolic 60–100
[2020-06-21] MEDS: ACETYLCYSTEINE 100MG/ML 10% VIAL 4ML INH SCH ×3 (00:10→22:00)
[2020-06-21] MEDS: IPRATROPIUM/ALBUTEROL 0.5-3(2.5)MG/3ML NEB HHN SCH ×5 (00:10→20:47)
[2020-06-21] MEDS: SODIUM CHLORIDE 3% FOR INH 4ML UD NEB INH SCH (02:00)
[2020-06-21] MEDS: PROPOFOL 10MG/ML 100ML 100 ML IV PRN ×2 (03:33→14:14)
[2020-06-21] MEDS: METOCLOPRAMIDE HCL 10MG/2ML VIAL IV SCH ×4 (05:18→23:23)
[2020-06-21 05:36] LABS: HEMATOCRIT. 53.6 % (42.0-52.0); HEMOGLOBIN. 17.3 g/dL (14.0-18.0); MEAN CORPUSCULAR HEMOGLOBIN 29.9 pg (28.0-32.0); MEAN CORPUSCULAR VOLUME 92.8 fL (80.0-94.0); MEAN PLATELET VOLUME 10.5 fl (7.4-10.4); PLATELET 81 x1000/uL (130-400); RED BLOOD CELL COUNT 5.78 mill/uL (4.7-6.1); RED CELL DISTRIBUTION WIDTH 16.4 % (11.6-14.6)
[2020-06-21 05:43] LABS: CHLORIDE 111 mEq/L (98-107)
[2020-06-21] MEDS: BLOOD SUGAR DIAGNOSTIC STRIP TEST SCH ×4 (05:43→23:23)
[2020-06-21] MEDS: INSULIN LISPRO 100 UNITS/ML SUBCUT SCH ×4 (05:44→23:15)
[2020-06-21] MEDS: FUROSEMIDE 40MG/4ML VIAL IVP SCH (05:44)
[2020-06-21] MEDS: METHYLPREDNISOLONE SOD SUCC 40 MG/ML VIAL IV SCH ×3 (06:43→23:22)
[2020-06-21] MEDS: MIDAZOLAM HCL 100 MG in DEXT 5% WATER 80 ML IV PRN ×3 (06:44→23:45)
[2020-06-21] MEDS: FENTANYL CITRATE/PF 2,500 MCG in SODIUM CHLORIDE 0.9% 200 ML IV PRN ×2 (06:44→14:49)
[2020-06-21] MEDS: PANTOPRAZOLE SODIUM 40 MG/VIAL IV SCH (08:29)
[2020-06-21] MEDS: NYSTATIN POWDER 15GM TOP SCH ×3 (08:30→17:36)
[2020-06-21] MEDS: GLIPIZIDE 5MG TABLET PO SCH ×2 (08:30→17:36)
[2020-06-21] MEDS: ZINC SULFATE 220 MG ( 50 ) CAPSULE NG SCH (08:30)
[2020-06-21] MEDS: QUETIAPINE FUMARATE 25MG TABLET PO SCH ×2 (08:30→21:33)
[2020-06-21] MEDS: ASCORBIC ACID 500 MG TABLET NG SCH (08:30)
[2020-06-21 09:01] LABS: BG CARBOXYHEMOGLOBIN 0.3 % (0.5-1.5); BG DEOXYHEMOGLOBIN 4.8 % (0.0-5.0); BG HCO3 ACT 29.7 mmol/L (22.0-26.0); BG METHEMOGLOBIN 0.4 % (0.0-1.5); BG OXYGEN SATURATION 95.2 % (92.0-98.5); BG OXYHEMOGLOBIN 94.5 % (94.0-97.0); BG PCO2 51.6 mmHg (35.0-45.0); BG PH 7.378 (7.350-7.450); BG PO2 78.4 mmHg (75.0-100.0); BG SAMPLE SITE RIGHT RADIAL; BG TOTAL HEMOGLOBIN 19.4 g/dL (12.0-18.0); BG VENT MODE VENT - AC
[2020-06-21 09:06] LABS: PLATELET ESTIMATE DECREASED
[2020-06-21] MEDS: INSULIN GLARGINE UD 100 UNITS/ML SYR SUBCUT SCH ×2 (10:43→23:12)
[2020-06-21] MEDS: KETOCONAZOLE 2% CREAM 15GM TOP SCH (12:43)
[2020-06-22] VITALS (91 sets, daily range): BP systolic 80–184; BP diastolic 23–113
[2020-06-22] MEDS: ACETYLCYSTEINE 100MG/ML 10% VIAL 4ML INH SCH ×2 (00:15→06:00)
[2020-06-22] MEDS: FENTANYL CITRATE/PF 2,500 MCG in SODIUM CHLORIDE 0.9% 200 ML IV PRN ×2 (01:40→15:06)
[2020-06-22] MEDS: INSULIN LISPRO 100 UNITS/ML SUBCUT SCH ×3 (06:00→16:57)
[2020-06-22] MEDS: BLOOD SUGAR DIAGNOSTIC STRIP TEST SCH ×3 (06:00→16:56)
[2020-06-22] MEDS: METOCLOPRAMIDE HCL 10MG/2ML VIAL IV SCH ×3 (06:03→16:56)
[2020-06-22] MEDS: METHYLPREDNISOLONE SOD SUCC 40 MG/ML VIAL IV SCH ×2 (06:03→15:46)
[2020-06-22] MEDS: PROPOFOL 10MG/ML 100ML 100 ML IV PRN ×2 (06:06→06:08)
[2020-06-22 07:00] LABS: HEMATOCRIT. 53.7 % (42.0-52.0); HEMOGLOBIN. 17.3 g/dL (14.0-18.0); MEAN CORPUSCULAR HEMOGLOBIN 29.8 pg (28.0-32.0); MEAN CORPUSCULAR VOLUME 92.5 fL (80.0-94.0); MEAN PLATELET VOLUME 9.9 fl (7.4-10.4); PLATELET 73 x1000/uL (130-400); RED CELL DISTRIBUTION WIDTH 16.1 % (11.6-14.6)
[2020-06-22 07:06] LABS: CHLORIDE 112 mEq/L (98-107)
[2020-06-22] MEDS: IPRATROPIUM/ALBUTEROL 0.5-3(2.5)MG/3ML NEB HHN SCH ×3 (08:05→20:39)
[2020-06-22] MEDS: ASCORBIC ACID 500 MG TABLET NG SCH (10:00)
[2020-06-22] MEDS: PANTOPRAZOLE SODIUM 40 MG/VIAL IV SCH (10:00)
[2020-06-22] MEDS: QUETIAPINE FUMARATE 25MG TABLET PO SCH ×2 (10:00→21:20)
[2020-06-22] MEDS: ZINC SULFATE 220 MG ( 50 ) CAPSULE NG SCH (10:01)
[2020-06-22] MEDS: KETOCONAZOLE 2% CREAM 15GM TOP SCH (10:01)
[2020-06-22] MEDS: NYSTATIN POWDER 15GM TOP SCH ×3 (10:01→16:57)
[2020-06-22] MEDS: GLIPIZIDE 5MG TABLET PO SCH (10:01)
[2020-06-22] MEDS: INSULIN GLARGINE UD 100 UNITS/ML SYR SUBCUT SCH ×2 (10:02→22:13)
[2020-06-22] MEDS ORDERED: SORBITOL 70% SOLN 30ML PO NR (11:00)
[2020-06-22 11:01] LABS: PLATELET ESTIMATE DECREASED
[2020-06-22] MEDS: DEXTROSE 50% WATER 50ML SYRINGE IV PRN (16:56)
[2020-06-22] MEDS: MIDAZOLAM HCL 100 MG in DEXT 5% WATER 80 ML IV PRN (17:56)
[2020-06-22 18:20] LABS: BG BASE EXCESS 3.7 mmol/L (-2.0-2.0); BG CARBOXYHEMOGLOBIN 0.3 % (0.5-1.5); BG DEOXYHEMOGLOBIN 4.2 % (0.0-5.0); BG FRACTION INSPIRED OXYGEN 60; BG HCO3 ACT 33.3 mmol/L (22.0-26.0); BG METHEMOGLOBIN 0.6 % (0.0-1.5); BG OXYGEN SATURATION 95.8 % (92.0-98.5); BG OXYHEMOGLOBIN 94.9 % (94.0-97.0); BG PCO2 68.8 mmHg (35.0-45.0); BG PH 7.303 (7.350-7.450); BG PO2 89.1 mmHg (75.0-100.0); BG SAMPLE SITE RIGHT RADIAL; BG TOTAL HEMOGLOBIN 19.4 g/dL (12.0-18.0); BG VENT MODE VENT - CPAP
[2020-06-22 18:20] LABS: BG BASE EXCESS 2.7 mmol/L (-2.0-2.0); BG CARBOXYHEMOGLOBIN 0.1 % (0.5-1.5); BG DEOXYHEMOGLOBIN 2.8 % (0.0-5.0); BG FRACTION INSPIRED OXYGEN 60; BG HCO3 ACT 30.4 mmol/L (22.0-26.0); BG METHEMOGLOBIN 0.6 % (0.0-1.5); BG OXYGEN SATURATION 97.2 % (92.0-98.5); BG OXYHEMOGLOBIN 96.5 % (94.0-97.0); BG PH 7.345 (7.350-7.450); BG PO2 97.3 mmHg (75.0-100.0); BG SAMPLE SITE RIGHT RADIAL; BG TOTAL HEMOGLOBIN 18.8 g/dL (12.0-18.0); BG VENT MODE VENT - SIMV
[2020-06-23] VITALS (91 sets, daily range): BP systolic 89–166; BP diastolic 53–139
[2020-06-23] MEDS: METHYLPREDNISOLONE SOD SUCC 40 MG/ML VIAL IV SCH ×4 (00:13→23:26)
[2020-06-23] MEDS: FENTANYL CITRATE/PF 2,500 MCG in SODIUM CHLORIDE 0.9% 200 ML IV PRN ×3 (00:14→22:17)
[2020-06-23] MEDS: IPRATROPIUM/ALBUTEROL 0.5-3(2.5)MG/3ML NEB HHN SCH ×6 (00:15→20:31)
[2020-06-23] MEDS: METOCLOPRAMIDE HCL 10MG/2ML VIAL IV SCH ×4 (00:34→18:09)
[2020-06-23] MEDS: BLOOD SUGAR DIAGNOSTIC STRIP TEST SCH ×5 (00:34→23:18)
[2020-06-23] MEDS: MIDAZOLAM HCL 100 MG in DEXT 5% WATER 80 ML IV PRN ×2 (02:56→18:05)
[2020-06-23 05:39] LABS: HEMATOCRIT. 52.6 % (42.0-52.0); HEMOGLOBIN. 16.9 g/dL (14.0-18.0); MEAN CORPUSCULAR HEMOGLOBIN 29.8 pg (28.0-32.0); MEAN CORPUSCULAR VOLUME 92.5 fL (80.0-94.0); MEAN PLATELET VOLUME 10.5 fl (7.4-10.4); PLATELET 63 x1000/uL (130-400); RED BLOOD CELL COUNT 5.69 mill/uL (4.7-6.1); RED CELL DISTRIBUTION WIDTH 15.9 % (11.6-14.6)
[2020-06-23 05:49] LABS: CHLORIDE 113 mEq/L (98-107)
[2020-06-23] MEDS: INSULIN LISPRO 100 UNITS/ML SUBCUT SCH ×5 (06:00→23:18)
[2020-06-23] MEDS: ACETYLCYSTEINE 100MG/ML 10% VIAL 4ML INH SCH ×2 (09:02→15:28)
[2020-06-23] MEDS: KETOCONAZOLE 2% CREAM 15GM TOP SCH (09:12)
[2020-06-23] MEDS: ASCORBIC ACID 500 MG TABLET NG SCH (09:12)
[2020-06-23] MEDS: QUETIAPINE FUMARATE 25MG TABLET PO SCH ×2 (09:12→22:05)
[2020-06-23] MEDS: PANTOPRAZOLE SODIUM 40 MG/VIAL IV SCH (09:12)
[2020-06-23] MEDS: ZINC SULFATE 220 MG ( 50 ) CAPSULE NG SCH (09:12)
[2020-06-23] MEDS: NYSTATIN POWDER 15GM TOP SCH ×3 (11:05→18:10)
[2020-06-23] MEDS: INSULIN GLARGINE UD 100 UNITS/ML SYR SUBCUT SCH ×2 (11:07→21:03)
[2020-06-23 11:30] LABS: BG BASE EXCESS 0.3 mmol/L (-2.0-2.0); BG CARBOXYHEMOGLOBIN 0.5 % (0.5-1.5); BG DEOXYHEMOGLOBIN 3.7 % (0.0-5.0); BG FRACTION INSPIRED OXYGEN 60; BG HCO3 ACT 25.6 mmol/L (22.0-26.0); BG METHEMOGLOBIN 0.5 % (0.0-1.5); BG OXYGEN SATURATION 96.3 % (92.0-98.5); BG OXYHEMOGLOBIN 95.3 % (94.0-97.0); BG PCO2 43.3 mmHg (35.0-45.0); BG PH 7.389 (7.350-7.450); BG PO2 85.4 mmHg (75.0-100.0); BG SAMPLE SITE RIGHT RADIAL; BG TOTAL HEMOGLOBIN 17.8 g/dL (12.0-18.0); BG VENT MODE VENT - AC
[2020-06-23 12:02] LABS: PLATELET ESTIMATE DECREASED
[2020-06-23 13:46] LABS: BG BASE EXCESS 3.1 mmol/L (-2.0-2.0); BG CARBOXYHEMOGLOBIN 0.3 % (0.5-1.5); BG DEOXYHEMOGLOBIN 3.2 % (0.0-5.0); BG FRACTION INSPIRED OXYGEN 60; BG HCO3 ACT 29.6 mmol/L (22.0-26.0); BG METHEMOGLOBIN 0.7 % (0.0-1.5); BG OXYGEN SATURATION 96.8 % (92.0-98.5); BG OXYHEMOGLOBIN 95.8 % (94.0-97.0); BG PCO2 50.6 mmHg (35.0-45.0); BG PH 7.385 (7.350-7.450); BG PO2 92.9 mmHg (75.0-100.0); BG SAMPLE SITE RIGHT RADIAL; BG TOTAL HEMOGLOBIN 19.2 g/dL (12.0-18.0); BG VENT MODE VENT - SIMV
[2020-06-23 16:41] LABS: BG CARBOXYHEMOGLOBIN 0.3 % (0.5-1.5); BG DEOXYHEMOGLOBIN 2.8 % (0.0-5.0); BG FRACTION INSPIRED OXYGEN 60; BG METHEMOGLOBIN 0.6 % (0.0-1.5); BG OXYGEN SATURATION 97.2 % (92.0-98.5); BG OXYHEMOGLOBIN 96.3 % (94.0-97.0); BG PCO2 53.2 mmHg (35.0-45.0); BG PH 7.369 (7.350-7.450); BG PO2 96.8 mmHg (75.0-100.0); BG SAMPLE SITE RIGHT RADIAL; BG TOTAL HEMOGLOBIN 19.6 g/dL (12.0-18.0); BG TOTAL RESPIRATORY RATE 21 b/min; BG VENT MODE VENT - SIMV
[2020-06-23] MEDS ORDERED: PROPOFOL 10MG/ML 100ML 100 ML IV PRN (17:45)
[2020-06-23] MEDS: DEXTROSE 50% WATER 50ML SYRINGE IV PRN (23:26)
[2020-06-24] VITALS (60 sets, daily range): BP systolic 94–214; BP diastolic 53–122
[2020-06-24] MEDS: ACETYLCYSTEINE 100MG/ML 10% VIAL 4ML INH SCH (00:10)
[2020-06-24] MEDS: IPRATROPIUM/ALBUTEROL 0.5-3(2.5)MG/3ML NEB HHN SCH ×6 (00:10→23:54)
[2020-06-24] MEDS: METOCLOPRAMIDE HCL 10MG/2ML VIAL IV SCH ×4 (00:22→18:53)
[2020-06-24] MEDS: MIDAZOLAM HCL 100 MG in DEXT 5% WATER 80 ML IV PRN ×3 (02:28→14:50)
[2020-06-24] MEDS: INSULIN LISPRO 100 UNITS/ML SUBCUT SCH ×3 (06:00→18:00)
[2020-06-24] MEDS: BLOOD SUGAR DIAGNOSTIC STRIP TEST SCH ×3 (06:08→18:51)
[2020-06-24] MEDS: FENTANYL CITRATE/PF 2,500 MCG in SODIUM CHLORIDE 0.9% 200 ML IV PRN (06:09)
[2020-06-24 06:34] LABS: HEMATOCRIT. 49.1 % (42.0-52.0); HEMOGLOBIN. 15.8 g/dL (14.0-18.0); MEAN CORPUSCULAR HEMOGLOBIN 29.9 pg (28.0-32.0); MEAN CORPUSCULAR VOLUME 93.1 fL (80.0-94.0); MEAN PLATELET VOLUME 11.2 fl (7.4-10.4); PLATELET 53 x1000/uL (130-400); RED BLOOD CELL COUNT 5.27 mill/uL (4.7-6.1); RED CELL DISTRIBUTION WIDTH 16.3 % (11.6-14.6)
[2020-06-24 06:42] LABS: CHLORIDE 113 mEq/L (98-107)
[2020-06-24] MEDS: METHYLPREDNISOLONE SOD SUCC 40 MG/ML VIAL IV SCH ×2 (07:52→20:49)
[2020-06-24] MEDS: PANTOPRAZOLE SODIUM 40 MG/VIAL IV SCH (08:01)
[2020-06-24] MEDS: QUETIAPINE FUMARATE 25MG TABLET PO SCH (08:01)
[2020-06-24] MEDS: ASCORBIC ACID 500 MG TABLET NG SCH (08:01)
[2020-06-24] MEDS: ZINC SULFATE 220 MG ( 50 ) CAPSULE NG SCH (08:01)
[2020-06-24] MEDS: NYSTATIN POWDER 15GM TOP SCH ×3 (09:46→17:33)
[2020-06-24] MEDS: KETOCONAZOLE 2% CREAM 15GM TOP SCH (09:46)
[2020-06-24 11:17] LABS: PLATELET ESTIMATE MARKEDLY DECREASED
[2020-06-24 14:27] LABS: BG BASE EXCESS 0.5 mmol/L (-2.0-2.0); BG CARBOXYHEMOGLOBIN 0.8 % (0.5-1.5); BG DEOXYHEMOGLOBIN 5.3 % (0.0-5.0); BG FRACTION INSPIRED OXYGEN 40; BG HCO3 ACT 27.3 mmol/L (22.0-26.0); BG METHEMOGLOBIN 0.4 % (0.0-1.5); BG OXYGEN SATURATION 94.6 % (92.0-98.5); BG OXYHEMOGLOBIN 93.5 % (94.0-97.0); BG PCO2 51.5 mmHg (35.0-45.0); BG PH 7.343 (7.350-7.450); BG SAMPLE SITE RIGHT RADIAL; BG TOTAL HEMOGLOBIN 18.2 g/dL (12.0-18.0); BG VENT MODE VENT - CPAP
[2020-06-24] MEDS: LORAZEPAM 2MG/ML CPJ IV PRN (17:27)
[2020-06-24] MEDS: MORPHINE SULFATE 2 MG/ML CPJ (NOT FOR IM USE) IV PRN ×3 (17:27→20:54)
[2020-06-24] MEDS ORDERED: MORPHINE SULFATE 2 MG/ML CPJ (NOT FOR IM USE) IV ONE (17:29)
[2020-06-24] MEDS: QUETIAPINE FUMARATE 50MG TABLET PO SCH (20:50)
[2020-06-24] MEDS ORDERED: INSULIN GLARGINE UD 100 UNITS/ML SYR SUBCUT SCH (22:00)
[2020-06-25] VITALS (42 sets, daily range): BP systolic 128–173; BP diastolic 77–123
[2020-06-25] MEDS: BLOOD SUGAR DIAGNOSTIC STRIP TEST SCH ×4 (00:58→18:01)
[2020-06-25] MEDS: METOCLOPRAMIDE HCL 10MG/2ML VIAL IV SCH ×4 (00:58→18:21)
[2020-06-25] MEDS: IPRATROPIUM/ALBUTEROL 0.5-3(2.5)MG/3ML NEB HHN SCH ×5 (04:00→21:05)
[2020-06-25] MEDS: INSULIN LISPRO 100 UNITS/ML SUBCUT SCH ×4 (06:00→18:00)
[2020-06-25 06:33] LABS: HEMOGLOBIN. 17.2 g/dL (14.0-18.0)
[2020-06-25 06:41] LABS: CHLORIDE 112 mEq/L (98-107)
[2020-06-25 06:44] LABS: HEMATOCRIT. 53.2 % (42.0-52.0); MEAN CORPUSCULAR VOLUME 92.9 fL (80.0-94.0); RED BLOOD CELL COUNT 5.73 mill/uL (4.7-6.1); RED CELL DISTRIBUTION WIDTH 15.8 % (11.6-14.6)
[2020-06-25] MEDS: QUETIAPINE FUMARATE 50MG TABLET PO SCH ×2 (08:46→20:32)
[2020-06-25] MEDS: ZINC SULFATE 220 MG ( 50 ) CAPSULE NG SCH (08:46)
[2020-06-25] MEDS: PANTOPRAZOLE SODIUM 40 MG/VIAL IV SCH (08:46)
[2020-06-25] MEDS: ASCORBIC ACID 500 MG TABLET NG SCH (08:46)
[2020-06-25] MEDS: METHYLPREDNISOLONE SOD SUCC 40 MG/ML VIAL IV SCH ×2 (08:47→20:32)
[2020-06-25] MEDS: NYSTATIN POWDER 15GM TOP SCH ×3 (08:48→17:00)
[2020-06-25] MEDS: KETOCONAZOLE 2% CREAM 15GM TOP SCH (08:48)
[2020-06-25 10:01] LABS: BG BASE EXCESS 3.1 mmol/L (-2.0-2.0); BG CARBOXYHEMOGLOBIN 1.3 % (0.5-1.5); BG DEOXYHEMOGLOBIN 5.5 % (0.0-5.0); BG HCO3 ACT 26.5 mmol/L (22.0-26.0); BG METHEMOGLOBIN 0.3 % (0.0-1.5); BG OXYGEN SATURATION 94.4 % (92.0-98.5); BG OXYHEMOGLOBIN 92.9 % (94.0-97.0); BG PCO2 37.1 mmHg (35.0-45.0); BG PH 7.472 (7.350-7.450); BG PO2 66.3 mmHg (75.0-100.0); BG SAMPLE SITE RIGHT RADIAL; BG TOTAL HEMOGLOBIN 17.8 g/dL (12.0-18.0); BG VENT MODE NASAL CANNULA
[2020-06-25] MEDS ORDERED: AMLODIPINE 10MG TABLET PO SCH (11:15)
[2020-06-25] MEDS ORDERED: POTASSIUM CHLORIDE 20MEQ TABLET SR PO NR (11:30)
[2020-06-25 14:38] LABS: MEAN PLATELET VOLUME 10.1 fl (7.4-10.4); PLATELET 58 x1000/uL (130-400); PLATELET ESTIMATE NORMAL
[2020-06-25] MEDS: LORAZEPAM 2MG/ML CPJ IV PRN (17:19)
[2020-06-25] MEDS: HALOPERIDOL LACTATE 5MG/ML VIAL IM PRN (18:21)
[2020-06-26] VITALS (12 sets, daily range): BP systolic 130–165; BP diastolic 65–112
[2020-06-26] MEDS: IPRATROPIUM/ALBUTEROL 0.5-3(2.5)MG/3ML NEB HHN SCH ×6 (00:38→21:27)
[2020-06-26] MEDS: METOCLOPRAMIDE HCL 10MG/2ML VIAL IV SCH ×4 (01:26→18:08)
[2020-06-26] MEDS: INSULIN LISPRO 100 UNITS/ML SUBCUT SCH ×4 (05:31→18:09)
[2020-06-26] MEDS: BLOOD SUGAR DIAGNOSTIC STRIP TEST SCH ×4 (06:17→18:09)
[2020-06-26 07:06] LABS: CHLORIDE 108 mEq/L (98-107)
[2020-06-26 07:09] LABS: HEMATOCRIT. 51.5 % (42.0-52.0); HEMOGLOBIN. 16.8 g/dL (14.0-18.0); MEAN CORPUSCULAR HEMOGLOBIN 30.1 pg (28.0-32.0); MEAN CORPUSCULAR VOLUME 92.4 fL (80.0-94.0); MEAN PLATELET VOLUME 9.6 fl (7.4-10.4); RED BLOOD CELL COUNT 5.57 mill/uL (4.7-6.1); RED CELL DISTRIBUTION WIDTH 15.7 % (11.6-14.6)
[2020-06-26] MEDS ORDERED: METHYLPREDNISOLONE SOD SUCC 40 MG/ML VIAL IV SCH (09:00)
[2020-06-26] MEDS: KETOCONAZOLE 2% CREAM 15GM TOP SCH (09:00)
[2020-06-26] MEDS: QUETIAPINE FUMARATE 50MG TABLET PO SCH ×2 (09:01→20:29)
[2020-06-26] MEDS: ASCORBIC ACID 500 MG TABLET NG SCH (09:01)
[2020-06-26] MEDS: LOSARTAN POTASSIUM 25 MG TABLET PO SCH (09:01)
[2020-06-26] MEDS: PANTOPRAZOLE SODIUM 40 MG/VIAL IV SCH (09:01)
[2020-06-26] MEDS: ZINC SULFATE 220 MG ( 50 ) CAPSULE NG SCH (09:10)
[2020-06-26 09:11] LABS: COCCIDIOIDES AB IGG BY ELISA 0.3 IV (<=0.9)
[2020-06-26] MEDS: NYSTATIN POWDER 15GM TOP SCH ×3 (11:22→18:10)
[2020-06-26] MEDS: ACETAMINOPHEN 325MG TABLET PO PRN (20:28)
[2020-06-26] MEDS: FAMOTIDINE 20MG TABLET PO SCH (20:29)
[2020-06-26 20:38] LABS: PLATELET ESTIMATE MARKEDLY DECREASED
[2020-06-26] MEDS: CLONIDINE 0.1MG TABLET PO PRN (21:50)
[2020-06-27] VITALS (13 sets, daily range): BP systolic 136–185; BP diastolic 76–110
[2020-06-27] MEDS: METOCLOPRAMIDE HCL 10MG/2ML VIAL IV SCH ×4 (00:44→19:02)
[2020-06-27] MEDS: INSULIN LISPRO 100 UNITS/ML SUBCUT SCH ×4 (00:45→19:03)
[2020-06-27] MEDS: BLOOD SUGAR DIAGNOSTIC STRIP TEST SCH ×4 (00:53→19:03)
[2020-06-27] MEDS: IPRATROPIUM/ALBUTEROL 0.5-3(2.5)MG/3ML NEB HHN SCH ×6 (01:14→20:53)
[2020-06-27 06:19] LABS: BASOPHILS % 0.2 % (0.0-2.0); EOSINOPHILS % 3.2 % (0.0-5.0); HEMATOCRIT. 53.1 % (42.0-52.0); HEMOGLOBIN. 17.4 g/dL (14.0-18.0); LYMPHOCYTES % 9.5 % (20.0-50.0); MEAN CORPUSCULAR HEMOGLOBIN 30.1 pg (28.0-32.0); MEAN CORPUSCULAR VOLUME 91.6 fL (80.0-94.0); MEAN PLATELET VOLUME 10.8 fl (7.4-10.4); MONOCYTES % 6.3 % (2.0-8.0); NEUTROPHILS % 80.8 % (40.0-76.0); PLATELET 52 x1000/uL (130-400); RED BLOOD CELL COUNT 5.79 mill/uL (4.7-6.1); RED CELL DISTRIBUTION WIDTH 15.9 % (11.6-14.6)
[2020-06-27 06:28] LABS: CHLORIDE 106 mEq/L (98-107)
[2020-06-27] MEDS ORDERED: METHYLPREDNISOLONE SOD SUCC 40 MG/ML VIAL IV SCH (09:00)
[2020-06-27] MEDS: KETOCONAZOLE 2% CREAM 15GM TOP SCH (09:00)
[2020-06-27] MEDS: ASCORBIC ACID 500 MG TABLET NG SCH (10:55)
[2020-06-27] MEDS: ZINC SULFATE 220 MG ( 50 ) CAPSULE NG SCH (10:55)
[2020-06-27] MEDS: LOSARTAN POTASSIUM 25 MG TABLET PO SCH (10:56)
[2020-06-27] MEDS: NYSTATIN POWDER 15GM TOP SCH ×3 (10:56→19:03)
[2020-06-27] MEDS: QUETIAPINE FUMARATE 50MG TABLET PO SCH ×2 (10:56→20:45)
[2020-06-27 10:59] LABS: PLATELET 36 x1000/uL (130-400)
[2020-06-27] MEDS ORDERED: POTASSIUM CHLORIDE 20MEQ TABLET SR PO SCH (14:00)
[2020-06-27] MEDS: LORAZEPAM 2MG/ML CPJ IV PRN (14:27)
[2020-06-27] MEDS: CLONIDINE 0.1MG TABLET PO PRN (14:28)
[2020-06-27] MEDS: FAMOTIDINE 20MG TABLET PO SCH (20:45)
[2020-06-28] VITALS (13 sets, daily range): BP systolic 126–163; BP diastolic 72–94
[2020-06-28] MEDS: IPRATROPIUM/ALBUTEROL 0.5-3(2.5)MG/3ML NEB HHN SCH ×6 (00:46→20:30)
[2020-06-28] MEDS: INSULIN LISPRO 100 UNITS/ML SUBCUT SCH ×4 (05:05→17:46)
[2020-06-28] MEDS: METOCLOPRAMIDE HCL 10MG/2ML VIAL IV SCH ×4 (05:05→17:45)
[2020-06-28] MEDS: BLOOD SUGAR DIAGNOSTIC STRIP TEST SCH ×4 (05:05→17:45)
[2020-06-28 07:34] LABS: BASOPHILS % 0.3 % (0.0-2.0); EOSINOPHILS % 4.1 % (0.0-5.0); HEMATOCRIT. 50.6 % (42.0-52.0); HEMOGLOBIN. 16.7 g/dL (14.0-18.0); MEAN CORPUSCULAR HEMOGLOBIN 30.1 pg (28.0-32.0); MEAN CORPUSCULAR VOLUME 91.2 fL (80.0-94.0); MEAN PLATELET VOLUME 10.4 fl (7.4-10.4); MONOCYTES % 5.5 % (2.0-8.0); NEUTROPHILS % 81.1 % (40.0-76.0); RED BLOOD CELL COUNT 5.54 mill/uL (4.7-6.1); RED CELL DISTRIBUTION WIDTH 15.9 % (11.6-14.6)
[2020-06-28 08:01] LABS: PLATELET 41 x1000/uL (130-400)
[2020-06-28 08:28] LABS: CHLORIDE 108 mEq/L (98-107)
[2020-06-28] MEDS: QUETIAPINE FUMARATE 50MG TABLET PO SCH ×2 (08:59→21:41)
[2020-06-28] MEDS: ZINC SULFATE 220 MG ( 50 ) CAPSULE NG SCH (08:59)
[2020-06-28] MEDS: ASCORBIC ACID 500 MG TABLET NG SCH (08:59)
[2020-06-28] MEDS: LOSARTAN POTASSIUM 25 MG TABLET PO SCH (08:59)
[2020-06-28] MEDS: KETOCONAZOLE 2% CREAM 15GM TOP SCH (09:00)
[2020-06-28] MEDS: NYSTATIN POWDER 15GM TOP SCH ×3 (09:00→17:45)
[2020-06-28 11:07] LABS: PLATELET ESTIMATE MARKEDLY DECREASED
[2020-06-28] MEDS ORDERED: FUROSEMIDE 40MG/4ML VIAL IVP NR (13:30)
[2020-06-28] MEDS: FAMOTIDINE 20MG TABLET PO SCH (21:41)
[2020-06-29] VITALS (12 sets, daily range): BP systolic 104–153; BP diastolic 61–92
[2020-06-29] MEDS: BLOOD SUGAR DIAGNOSTIC STRIP TEST SCH ×4 (00:20→18:40)
[2020-06-29] MEDS: METOCLOPRAMIDE HCL 10MG/2ML VIAL IV SCH ×4 (00:20→18:39)
[2020-06-29] MEDS: IPRATROPIUM/ALBUTEROL 0.5-3(2.5)MG/3ML NEB HHN SCH ×6 (00:21→20:07)
[2020-06-29] MEDS: INSULIN LISPRO 100 UNITS/ML SUBCUT SCH ×4 (00:29→18:00)
[2020-06-29 07:11] LABS: BASOPHILS % 0.3 % (0.0-2.0); EOSINOPHILS % 5.7 % (0.0-5.0); HEMATOCRIT. 50.6 % (42.0-52.0); HEMOGLOBIN. 16.6 g/dL (14.0-18.0); LYMPHOCYTES % 10.2 % (20.0-50.0); MEAN CORPUSCULAR HEMOGLOBIN 29.7 pg (28.0-32.0); MEAN CORPUSCULAR VOLUME 90.5 fL (80.0-94.0); MEAN PLATELET VOLUME 10.5 fl (7.4-10.4); MONOCYTES % 5.6 % (2.0-8.0); NEUTROPHILS % 78.2 % (40.0-76.0); RED CELL DISTRIBUTION WIDTH 15.5 % (11.6-14.6)
[2020-06-29 07:40] LABS: CHLORIDE 104 mEq/L (98-107)
[2020-06-29] MEDS: LOSARTAN POTASSIUM 25 MG TABLET PO SCH ×3 (08:43→20:50)
[2020-06-29] MEDS: ZINC SULFATE 220 MG ( 50 ) CAPSULE NG SCH (08:43)
[2020-06-29] MEDS: QUETIAPINE FUMARATE 50MG TABLET PO SCH ×2 (08:43→20:50)
[2020-06-29] MEDS: KETOCONAZOLE 2% CREAM 15GM TOP SCH (08:44)
[2020-06-29] MEDS: ASCORBIC ACID 500 MG TABLET NG SCH (08:44)
[2020-06-29] MEDS: NYSTATIN POWDER 15GM TOP SCH ×3 (08:44→18:40)
[2020-06-29 09:02] LABS: PLATELET 44 x1000/uL (130-400)
[2020-06-29] MEDS ORDERED: LORAZEPAM 2MG/ML CPJ IV PRN (09:15)
[2020-06-29] MEDS ORDERED: POTASSIUM CHLORIDE 20MEQ TABLET SR PO NR ×2 (10:15→12:30)
[2020-06-29] MEDS: HALOPERIDOL LACTATE 5MG/ML VIAL IM PRN (12:58)
[2020-06-29] MEDS: FAMOTIDINE 20MG TABLET PO SCH (20:50)
[2020-06-30] VITALS (12 sets, daily range): BP systolic 132–168; BP diastolic 58–96
[2020-06-30] MEDS: IPRATROPIUM/ALBUTEROL 0.5-3(2.5)MG/3ML NEB HHN SCH ×5 (00:05→20:45)
[2020-06-30] MEDS: BLOOD SUGAR DIAGNOSTIC STRIP TEST SCH ×4 (00:20→17:52)
[2020-06-30] MEDS: METOCLOPRAMIDE HCL 10MG/2ML VIAL IV SCH ×4 (00:21→18:20)
[2020-06-30] MEDS: INSULIN LISPRO 100 UNITS/ML SUBCUT SCH ×4 (00:31→18:20)
[2020-06-30] MEDS: CLONIDINE 0.1MG TABLET PO PRN (05:31)
[2020-06-30 06:05] LABS: BASOPHILS % 0.4 % (0.0-2.0); EOSINOPHILS % 6.4 % (0.0-5.0); HEMATOCRIT. 50.4 % (42.0-52.0); HEMOGLOBIN. 16.6 g/dL (14.0-18.0); LYMPHOCYTES % 10.8 % (20.0-50.0); MEAN CORPUSCULAR HEMOGLOBIN 30.2 pg (28.0-32.0); MEAN CORPUSCULAR VOLUME 91.6 fL (80.0-94.0); NEUTROPHILS % 75.4 % (40.0-76.0); RED BLOOD CELL COUNT 5.51 mill/uL (4.7-6.1); RED CELL DISTRIBUTION WIDTH 15.7 % (11.6-14.6)
[2020-06-30 06:23] LABS: PLATELET 42 x1000/uL (130-400)
[2020-06-30 06:25] LABS: CHLORIDE 106 mEq/L (98-107)
[2020-06-30] MEDS: QUETIAPINE FUMARATE 50MG TABLET PO SCH ×2 (09:36→20:24)
[2020-06-30] MEDS: ZINC SULFATE 220 MG ( 50 ) CAPSULE NG SCH (09:36)
[2020-06-30] MEDS: ASCORBIC ACID 500 MG TABLET NG SCH (09:36)
[2020-06-30] MEDS: LOSARTAN POTASSIUM 25 MG TABLET PO SCH ×2 (09:36→20:25)
[2020-06-30] MEDS: NYSTATIN POWDER 15GM TOP SCH ×3 (09:37→17:00)
[2020-06-30] MEDS: KETOCONAZOLE 2% CREAM 15GM TOP SCH (09:37)
[2020-06-30 12:51] LABS: BG BASE EXCESS 2.9 mmol/L (-2.0-2.0); BG CARBOXYHEMOGLOBIN 1.6 % (0.5-1.5); BG DEOXYHEMOGLOBIN 20.6 % (0.0-5.0); BG HCO3 ACT 28.5 mmol/L (22.0-26.0); BG METHEMOGLOBIN 0.3 % (0.0-1.5); BG OXYHEMOGLOBIN 77.5 % (94.0-97.0); BG PCO2 46.7 mmHg (35.0-45.0); BG PH 7.403 (7.350-7.450); BG SAMPLE SITE RIGHT BRACHIAL; BG TOTAL HEMOGLOBIN 17.3 g/dL (12.0-18.0); BG VENT MODE ROOM AIR
[2020-06-30] MEDS: FAMOTIDINE 20MG TABLET PO SCH (20:24)
[2020-07-01] VITALS (13 sets, daily range): BP systolic 109–137; BP diastolic 61–86
[2020-07-01] MEDS: METOCLOPRAMIDE HCL 10MG/2ML VIAL IV SCH ×4 (00:01→18:21)
[2020-07-01] MEDS: INSULIN LISPRO 100 UNITS/ML SUBCUT SCH ×4 (00:01→18:21)
[2020-07-01] MEDS: IPRATROPIUM/ALBUTEROL 0.5-3(2.5)MG/3ML NEB HHN SCH ×6 (00:18→21:10)
[2020-07-01] MEDS: BLOOD SUGAR DIAGNOSTIC STRIP TEST SCH ×4 (06:00→17:35)
[2020-07-01 06:05] LABS: BASOPHILS % 0.4 % (0.0-2.0); EOSINOPHILS % 4.6 % (0.0-5.0); HEMATOCRIT. 49.1 % (42.0-52.0); HEMOGLOBIN. 16.3 g/dL (14.0-18.0); LYMPHOCYTES % 8.9 % (20.0-50.0); MEAN CORPUSCULAR HEMOGLOBIN 30.4 pg (28.0-32.0); MEAN CORPUSCULAR VOLUME 91.5 fL (80.0-94.0); MEAN PLATELET VOLUME 11.2 fl (7.4-10.4); MONOCYTES % 6.5 % (2.0-8.0); NEUTROPHILS % 79.6 % (40.0-76.0); RED BLOOD CELL COUNT 5.36 mill/uL (4.7-6.1); RED CELL DISTRIBUTION WIDTH 15.6 % (11.6-14.6)
[2020-07-01 06:36] LABS: PLATELET 47 x1000/uL (130-400)
[2020-07-01 08:46] LABS: CHLORIDE 105 mEq/L (98-107)
[2020-07-01] MEDS: NYSTATIN POWDER 15GM TOP SCH ×3 (08:58→16:10)
[2020-07-01] MEDS: ZINC SULFATE 220 MG ( 50 ) CAPSULE NG SCH (08:58)
[2020-07-01] MEDS: KETOCONAZOLE 2% CREAM 15GM TOP SCH (08:58)
[2020-07-01] MEDS: LOSARTAN POTASSIUM 25 MG TABLET PO SCH ×2 (08:58→21:02)
[2020-07-01] MEDS: QUETIAPINE FUMARATE 50MG TABLET PO SCH ×2 (08:58→21:02)
[2020-07-01] MEDS: ASCORBIC ACID 500 MG TABLET NG SCH (08:58)
[2020-07-01] MEDS: ONDANSETRON HCL 4MG/2ML INJ IV PRN ×2 (09:46→12:02)
[2020-07-01] MEDS: ACETAMINOPHEN 325MG TABLET PO PRN (09:46)
[2020-07-01] MEDS: FAMOTIDINE 20MG TABLET PO SCH (21:02)
[2020-07-02] VITALS (12 sets, daily range): BP systolic 103–147; BP diastolic 51–88
[2020-07-02] MEDS: METOCLOPRAMIDE HCL 10MG/2ML VIAL IV SCH ×4 (00:05→17:53)
[2020-07-02] MEDS: INSULIN LISPRO 100 UNITS/ML SUBCUT SCH ×4 (00:05→17:54)
[2020-07-02] MEDS: BLOOD SUGAR DIAGNOSTIC STRIP TEST SCH ×4 (00:14→18:08)
[2020-07-02] MEDS: IPRATROPIUM/ALBUTEROL 0.5-3(2.5)MG/3ML NEB HHN SCH ×6 (00:15→20:11)
[2020-07-02] MEDS: ZINC SULFATE 220 MG ( 50 ) CAPSULE NG SCH (10:03)
[2020-07-02] MEDS: ASCORBIC ACID 500 MG TABLET NG SCH (10:03)
[2020-07-02] MEDS: LOSARTAN POTASSIUM 25 MG TABLET PO SCH ×2 (10:03→20:43)
[2020-07-02] MEDS: QUETIAPINE FUMARATE 50MG TABLET PO SCH ×2 (10:03→20:44)
[2020-07-02] MEDS: NYSTATIN POWDER 15GM TOP SCH ×3 (10:04→17:54)
[2020-07-02] MEDS: KETOCONAZOLE 2% CREAM 15GM TOP SCH (10:04)
[2020-07-02] MEDS: FAMOTIDINE 20MG TABLET PO SCH (20:44)
[2020-07-03] VITALS (9 sets, daily range): BP systolic 114–135; BP diastolic 65–85
[2020-07-03] MEDS: METOCLOPRAMIDE HCL 10MG/2ML VIAL IV SCH ×4 (00:46→17:32)
[2020-07-03] MEDS: INSULIN LISPRO 100 UNITS/ML SUBCUT SCH ×5 (00:46→21:25)
[2020-07-03] MEDS: IPRATROPIUM/ALBUTEROL 0.5-3(2.5)MG/3ML NEB HHN SCH ×5 (04:27→20:29)
[2020-07-03] MEDS: BLOOD SUGAR DIAGNOSTIC STRIP TEST SCH ×5 (06:00→21:23)
[2020-07-03] MEDS: ASCORBIC ACID 500 MG TABLET NG SCH (09:07)
[2020-07-03] MEDS: NYSTATIN POWDER 15GM TOP SCH ×3 (09:08→17:32)
[2020-07-03] MEDS: ZINC SULFATE 220 MG ( 50 ) CAPSULE NG SCH (09:08)
[2020-07-03] MEDS: LOSARTAN POTASSIUM 25 MG TABLET PO SCH ×2 (09:08→21:20)
[2020-07-03] MEDS: QUETIAPINE FUMARATE 50MG TABLET PO SCH ×2 (09:08→21:20)
[2020-07-03] MEDS: KETOCONAZOLE 2% CREAM 15GM TOP SCH (09:09)
[2020-07-03 15:50] LABS: BASOPHILS % 0.3 % (0.0-2.0); EOSINOPHILS % 5.3 % (0.0-5.0); HEMATOCRIT. 47.8 % (42.0-52.0); HEMOGLOBIN. 15.5 g/dL (14.0-18.0); LYMPHOCYTES % 8.5 % (20.0-50.0); MEAN CORPUSCULAR HEMOGLOBIN 29.5 pg (28.0-32.0); MEAN PLATELET VOLUME 9.8 fl (7.4-10.4); NEUTROPHILS % 75.9 % (40.0-76.0); PLATELET 66 x1000/uL (130-400); RED BLOOD CELL COUNT 5.25 mill/uL (4.7-6.1); RED CELL DISTRIBUTION WIDTH 15.7 % (11.6-14.6)
[2020-07-03 16:17] LABS: CHLORIDE 104 mEq/L (98-107)
[2020-07-03] MEDS: FAMOTIDINE 20MG TABLET PO SCH (21:20)
[2020-07-04] VITALS (12 sets, daily range): BP systolic 116–159; BP diastolic 35–90
[2020-07-04] MEDS: METOCLOPRAMIDE HCL 10MG/2ML VIAL IV SCH ×4 (00:02→18:08)
[2020-07-04] MEDS: IPRATROPIUM/ALBUTEROL 0.5-3(2.5)MG/3ML NEB HHN SCH ×5 (04:00→20:44)
[2020-07-04] MEDS: INSULIN LISPRO 100 UNITS/ML SUBCUT SCH ×4 (07:30→21:29)
[2020-07-04] MEDS: BLOOD SUGAR DIAGNOSTIC STRIP TEST SCH ×4 (07:30→21:30)
[2020-07-04] MEDS: LOSARTAN POTASSIUM 25 MG TABLET PO SCH ×2 (08:53→21:26)
[2020-07-04] MEDS: ASCORBIC ACID 500 MG TABLET NG SCH (08:53)
[2020-07-04] MEDS: QUETIAPINE FUMARATE 50MG TABLET PO SCH ×2 (08:53→21:25)
[2020-07-04] MEDS: KETOCONAZOLE 2% CREAM 15GM TOP SCH (08:54)
[2020-07-04] MEDS: NYSTATIN POWDER 15GM TOP SCH ×3 (08:54→18:08)
[2020-07-04] MEDS: ZINC SULFATE 220 MG ( 50 ) CAPSULE NG SCH (08:58)
[2020-07-04] MEDS: MUPIROCIN 2% OINT 22GM TOP SCH (18:07)
[2020-07-04] MEDS: FAMOTIDINE 20MG TABLET PO SCH (21:25)
[2020-07-05] VITALS (8 sets, daily range): BP systolic 95–139; BP diastolic 53–74
[2020-07-05] MEDS: IPRATROPIUM/ALBUTEROL 0.5-3(2.5)MG/3ML NEB HHN SCH ×5 (00:13→15:38)
[2020-07-05] MEDS: METOCLOPRAMIDE HCL 10MG/2ML VIAL IV SCH ×4 (00:56→17:14)
[2020-07-05] MEDS: BLOOD SUGAR DIAGNOSTIC STRIP TEST SCH ×4 (07:50→21:05)
[2020-07-05] MEDS: LOSARTAN POTASSIUM 25 MG TABLET PO SCH ×2 (09:15→21:00)
[2020-07-05] MEDS: ZINC SULFATE 220 MG ( 50 ) CAPSULE NG SCH (09:15)
[2020-07-05] MEDS: QUETIAPINE FUMARATE 50MG TABLET PO SCH ×2 (09:15→21:07)
[2020-07-05] MEDS: ASCORBIC ACID 500 MG TABLET NG SCH (09:15)
[2020-07-05] MEDS: KETOCONAZOLE 2% CREAM 15GM TOP SCH (09:16)
[2020-07-05] MEDS: NYSTATIN POWDER 15GM TOP SCH ×3 (09:16→17:18)
[2020-07-05] MEDS: MUPIROCIN 2% OINT 22GM TOP SCH (09:16)
[2020-07-05] MEDS: INSULIN LISPRO 100 UNITS/ML SUBCUT SCH ×4 (09:17→21:21)
[2020-07-05 14:07] LABS: BG BASE EXCESS 5.6 mmol/L (-2.0-2.0); BG CARBOXYHEMOGLOBIN 1.4 % (0.5-1.5); BG DEOXYHEMOGLOBIN 6.9 % (0.0-5.0); BG HCO3 ACT 31.7 mmol/L (22.0-26.0); BG METHEMOGLOBIN 0.4 % (0.0-1.5); BG OXYHEMOGLOBIN 91.3 % (94.0-97.0); BG PCO2 51.2 mmHg (35.0-45.0); BG PO2 59.6 mmHg (75.0-100.0); BG SAMPLE SITE RIGHT RADIAL; BG TOTAL HEMOGLOBIN 16.2 g/dL (12.0-18.0); BG VENT MODE NASAL CANNULA
[2020-07-05 16:51] LABS: BG BASE EXCESS 7.2 mmol/L (-2.0-2.0); BG CARBOXYHEMOGLOBIN 1.6 % (0.5-1.5); BG METHEMOGLOBIN 0.2 % (0.0-1.5); BG OXYGEN SATURATION 80.7 % (92.0-98.5); BG OXYHEMOGLOBIN 79.2 % (94.0-97.0); BG PCO2 49.9 mmHg (35.0-45.0); BG PH 7.438 (7.350-7.450); BG PO2 38.5 mmHg (75.0-100.0); BG TOTAL HEMOGLOBIN 16.2 g/dL (12.0-18.0)
[2020-07-05] MEDS: FAMOTIDINE 20MG TABLET PO SCH (21:07)
[2020-07-06] VITALS: BP 95/53
[2020-07-06] MEDS: METOCLOPRAMIDE HCL 10MG/2ML VIAL IV SCH ×5 (00:13→23:07)
[2020-07-06] MEDS: IPRATROPIUM/ALBUTEROL 0.5-3(2.5)MG/3ML NEB HHN SCH ×3 (00:35→16:32)
[2020-07-06 04:00] VITALS: BP 122/64
[2020-07-06] MEDS: BLOOD SUGAR DIAGNOSTIC STRIP TEST SCH ×4 (07:10→21:00)
[2020-07-06 08:00] VITALS: BP 120/82
[2020-07-06] MEDS: LOSARTAN POTASSIUM 25 MG TABLET PO SCH ×2 (08:50→22:09)
[2020-07-06] MEDS: ZINC SULFATE 220 MG ( 50 ) CAPSULE NG SCH (08:50)
[2020-07-06] MEDS: QUETIAPINE FUMARATE 50MG TABLET PO SCH ×2 (08:50→22:09)
[2020-07-06] MEDS: ASCORBIC ACID 500 MG TABLET NG SCH (08:50)
[2020-07-06] MEDS: MUPIROCIN 2% OINT 22GM TOP SCH (08:51)
[2020-07-06] MEDS: KETOCONAZOLE 2% CREAM 15GM TOP SCH (08:52)
[2020-07-06] MEDS: NYSTATIN POWDER 15GM TOP SCH ×3 (08:52→17:29)
[2020-07-06] MEDS: INSULIN LISPRO 100 UNITS/ML SUBCUT SCH ×4 (09:00→22:54)
[2020-07-06 12:00] VITALS: BP 111/53
[2020-07-06 16:00] VITALS: BP 110/60
[2020-07-06 20:00] VITALS: BP 129/66
[2020-07-06] MEDS: FAMOTIDINE 20MG TABLET PO SCH (22:09)
[2020-07-07] VITALS: BP 132/75
[2020-07-07] MEDS: IPRATROPIUM/ALBUTEROL 0.5-3(2.5)MG/3ML NEB HHN SCH ×2 (01:29→16:10)
[2020-07-07 04:00] VITALS: BP 131/80
[2020-07-07] MEDS: METOCLOPRAMIDE HCL 10MG/2ML VIAL IV SCH ×4 (05:34→23:19)
[2020-07-07] MEDS: BLOOD SUGAR DIAGNOSTIC STRIP TEST SCH ×4 (06:35→20:24)
[2020-07-07 08:00] VITALS: BP 133/88
[2020-07-07] MEDS: QUETIAPINE FUMARATE 50MG TABLET PO SCH ×2 (08:15→20:49)
[2020-07-07] MEDS: LOSARTAN POTASSIUM 25 MG TABLET PO SCH ×2 (08:15→20:49)
[2020-07-07] MEDS: ASCORBIC ACID 500 MG TABLET NG SCH (08:15)
[2020-07-07] MEDS: KETOCONAZOLE 2% CREAM 15GM TOP SCH (08:16)
[2020-07-07] MEDS: NYSTATIN POWDER 15GM TOP SCH ×3 (08:16→17:47)
[2020-07-07] MEDS: MUPIROCIN 2% OINT 22GM TOP SCH (08:16)
[2020-07-07] MEDS: INSULIN LISPRO 100 UNITS/ML SUBCUT SCH ×4 (08:18→20:53)
[2020-07-07] MEDS: ZINC SULFATE 220 MG ( 50 ) CAPSULE NG SCH (08:19)
[2020-07-07 12:00] VITALS: BP 119/71
[2020-07-07 16:00] VITALS: BP 117/57
[2020-07-07 20:00] VITALS: BP 113/65
[2020-07-07] MEDS: FAMOTIDINE 20MG TABLET PO SCH (20:49)
[2020-07-08] VITALS: BP 125/72
[2020-07-08] MEDS: IPRATROPIUM/ALBUTEROL 0.5-3(2.5)MG/3ML NEB HHN SCH ×3 (01:00→16:51)
[2020-07-08 04:00] VITALS: BP 117/81
[2020-07-08] MEDS: METOCLOPRAMIDE HCL 10MG/2ML VIAL IV SCH ×2 (05:14→12:18)
[2020-07-08 08:00] VITALS: BP 120/78
[2020-07-08] MEDS: BLOOD SUGAR DIAGNOSTIC STRIP TEST SCH ×4 (08:01→21:00)
[2020-07-08] MEDS: ASCORBIC ACID 500 MG TABLET NG SCH (09:01)
[2020-07-08] MEDS: ZINC SULFATE 220 MG ( 50 ) CAPSULE NG SCH (09:02)
[2020-07-08] MEDS: QUETIAPINE FUMARATE 50MG TABLET PO SCH ×2 (09:02→22:20)
[2020-07-08] MEDS: LOSARTAN POTASSIUM 25 MG TABLET PO SCH ×2 (09:02→22:20)
[2020-07-08] MEDS: NYSTATIN POWDER 15GM TOP SCH ×3 (09:04→16:57)
[2020-07-08] MEDS: KETOCONAZOLE 2% CREAM 15GM TOP SCH (09:04)
[2020-07-08] MEDS: MUPIROCIN 2% OINT 22GM TOP SCH (09:05)
[2020-07-08] MEDS: INSULIN LISPRO 100 UNITS/ML SUBCUT SCH ×4 (09:07→22:37)
[2020-07-08 12:00] VITALS: BP 158/85
[2020-07-08] MEDS ORDERED: ALBU18HF2 IH (12:59)
[2020-07-08 16:00] VITALS: BP 104/70
[2020-07-08 20:00] VITALS: BP 120/72
[2020-07-08] MEDS: FAMOTIDINE 20MG TABLET PO SCH (22:20)
[2020-07-09] VITALS: BP 128/86
[2020-07-09 04:00] VITALS: BP 129/87
[2020-07-09] MEDS: BLOOD SUGAR DIAGNOSTIC STRIP TEST SCH ×4 (06:40→20:50)
[2020-07-09 08:00] VITALS: BP 116/77
[2020-07-09] MEDS: IPRATROPIUM/ALBUTEROL 0.5-3(2.5)MG/3ML NEB HHN SCH ×2 (08:05→16:57)
[2020-07-09] MEDS: ZINC SULFATE 220 MG ( 50 ) CAPSULE NG SCH (08:22)
[2020-07-09] MEDS: QUETIAPINE FUMARATE 50MG TABLET PO SCH (08:22)
[2020-07-09] MEDS: LOSARTAN POTASSIUM 25 MG TABLET PO SCH ×2 (08:22→20:49)
[2020-07-09] MEDS: ASCORBIC ACID 500 MG TABLET NG SCH (08:22)
[2020-07-09] MEDS: KETOCONAZOLE 2% CREAM 15GM TOP SCH (08:23)
[2020-07-09] MEDS: MUPIROCIN 2% OINT 22GM TOP SCH (08:23)
[2020-07-09] MEDS: NYSTATIN POWDER 15GM TOP SCH ×3 (08:23→17:24)
[2020-07-09] MEDS: INSULIN LISPRO 100 UNITS/ML SUBCUT SCH ×4 (08:32→20:58)
[2020-07-09 12:00] VITALS: BP 117/74
[2020-07-09 20:00] VITALS: BP 118/75
[2020-07-09] MEDS: QUETIAPINE FUMARATE 25MG TABLET PO SCH (20:48)
[2020-07-09] MEDS: FAMOTIDINE 20MG TABLET PO SCH (20:49)
[2020-07-10] VITALS: BP 128/80
[2020-07-10] MEDS: IPRATROPIUM/ALBUTEROL 0.5-3(2.5)MG/3ML NEB HHN SCH (01:50)
[2020-07-10 04:00] VITALS: BP 124/85
[2020-07-10] MEDS: INSULIN LISPRO 100 UNITS/ML SUBCUT SCH ×4 (07:50→21:59)
[2020-07-10] MEDS: BLOOD SUGAR DIAGNOSTIC STRIP TEST SCH ×4 (07:54→21:59)
[2020-07-10 08:00] VITALS: BP 129/87
[2020-07-10] MEDS: ZINC SULFATE 220 MG ( 50 ) CAPSULE NG SCH (09:30)
[2020-07-10] MEDS: ASCORBIC ACID 500 MG TABLET NG SCH (09:30)
[2020-07-10] MEDS: LOSARTAN POTASSIUM 25 MG TABLET PO SCH ×2 (09:30→21:54)
[2020-07-10] MEDS: QUETIAPINE FUMARATE 25MG TABLET PO SCH ×2 (09:30→21:54)
[2020-07-10] MEDS: NYSTATIN POWDER 15GM TOP SCH ×3 (09:31→17:53)
[2020-07-10] MEDS: MUPIROCIN 2% OINT 22GM TOP SCH (09:31)
[2020-07-10 12:00] VITALS: BP 138/95
[2020-07-10 16:00] VITALS: BP 138/70
[2020-07-10 17:32] LABS: BASOPHILS % 0.1 % (0.0-2.0); HEMATOCRIT. 38.5 % (42.0-52.0); HEMOGLOBIN. 12.7 g/dL (14.0-18.0); LYMPHOCYTES % 24.4 % (20.0-50.0); MEAN CORPUSCULAR VOLUME 96.5 fL (80.0-94.0); MEAN PLATELET VOLUME 8.4 fl (7.4-10.4); MONOCYTES % 13.8 % (2.0-8.0); NEUTROPHILS % 60.7 % (40.0-76.0); PLATELET 413 x1000/uL (130-400); RED BLOOD CELL COUNT 3.98 mill/uL (4.7-6.1); RED CELL DISTRIBUTION WIDTH 18.9 % (11.6-14.6)
[2020-07-10 17:51] LABS: CHLORIDE 105 mEq/L (98-107)
[2020-07-10] MEDS ORDERED: POTASSIUM CHLORIDE 20MEQ TABLET SR PO NR (18:15)
[2020-07-10 20:00] VITALS: BP 133/68
[2020-07-10] MEDS: FAMOTIDINE 20MG TABLET PO SCH (21:54)
[2020-07-11] VITALS: BP 139/82
[2020-07-11 04:00] VITALS: BP 147/80
[2020-07-11] MEDS: BLOOD SUGAR DIAGNOSTIC STRIP TEST SCH ×4 (06:37→21:40)
[2020-07-11 08:00] VITALS: BP 126/84
[2020-07-11] MEDS: LOSARTAN POTASSIUM 25 MG TABLET PO SCH ×2 (08:56→21:40)
[2020-07-11] MEDS: QUETIAPINE FUMARATE 25MG TABLET PO SCH ×2 (08:56→21:40)
[2020-07-11] MEDS: NYSTATIN POWDER 15GM TOP SCH ×3 (08:57→18:15)
[2020-07-11] MEDS: MUPIROCIN 2% OINT 22GM TOP SCH (08:58)
[2020-07-11] MEDS: INSULIN LISPRO 100 UNITS/ML SUBCUT SCH ×4 (09:23→23:10)
[2020-07-11 12:00] VITALS: BP 130/82
[2020-07-11 16:00] VITALS: BP 104/70
[2020-07-11 17:31] LABS: BG BASE EXCESS 4.5 mmol/L (-2.0-2.0); BG CARBOXYHEMOGLOBIN 1.5 % (0.5-1.5); BG DEOXYHEMOGLOBIN 15.9 % (0.0-5.0); BG HCO3 ACT 29.6 mmol/L (22.0-26.0); BG METHEMOGLOBIN 0.1 % (0.0-1.5); BG OXYGEN SATURATION 83.8 % (92.0-98.5); BG OXYHEMOGLOBIN 82.5 % (94.0-97.0); BG PCO2 45.2 mmHg (35.0-45.0); BG PH 7.434 (7.350-7.450); BG PO2 44.4 mmHg (75.0-100.0); BG SAMPLE SITE RIGHT BRACHIAL; BG TOTAL HEMOGLOBIN 17.7 g/dL (12.0-18.0); BG VENT MODE ROOM AIR
[2020-07-11 20:00] VITALS: BP 118/66
[2020-07-11] MEDS: FAMOTIDINE 20MG TABLET PO SCH (21:40)
[2020-07-12] VITALS: BP 100/61
[2020-07-12 04:00] VITALS: BP 110/70
[2020-07-12] MEDS: BLOOD SUGAR DIAGNOSTIC STRIP TEST SCH ×4 (07:20→21:12)
[2020-07-12 08:00] VITALS: BP 112/70
[2020-07-12] MEDS: LOSARTAN POTASSIUM 25 MG TABLET PO SCH ×2 (08:55→21:00)
[2020-07-12] MEDS: QUETIAPINE FUMARATE 25MG TABLET PO SCH ×2 (08:55→21:09)
[2020-07-12] MEDS: MUPIROCIN 2% OINT 22GM TOP SCH (08:56)
[2020-07-12] MEDS: NYSTATIN POWDER 15GM TOP SCH ×3 (08:57→17:59)
[2020-07-12] MEDS: INSULIN LISPRO 100 UNITS/ML SUBCUT SCH ×4 (09:12→21:22)
[2020-07-12 12:00] VITALS: BP 96/51
[2020-07-12 16:00] VITALS: BP 108/56
[2020-07-12 16:19] LABS: BASOPHILS % 0.5 % (0.0-2.0); EOSINOPHILS % 3.8 % (0.0-5.0); HEMATOCRIT. 42.6 % (42.0-52.0); LYMPHOCYTES % 8.8 % (20.0-50.0); MEAN CORPUSCULAR HEMOGLOBIN 29.4 pg (28.0-32.0); MEAN CORPUSCULAR VOLUME 89.5 fL (80.0-94.0); MEAN PLATELET VOLUME 8.7 fl (7.4-10.4); MONOCYTES % 11.7 % (2.0-8.0); NEUTROPHILS % 75.2 % (40.0-76.0); PLATELET 153 x1000/uL (130-400); RED BLOOD CELL COUNT 4.75 mill/uL (4.7-6.1); RED CELL DISTRIBUTION WIDTH 15.6 % (11.6-14.6)
[2020-07-12 16:26] LABS: CHLORIDE 102 mEq/L (98-107)
[2020-07-12 20:00] VITALS: BP 103/65
[2020-07-12] MEDS: FAMOTIDINE 20MG TABLET PO SCH (21:09)
[2020-07-13] VITALS: BP 95/56
[2020-07-13 04:00] VITALS: BP 109/64
[2020-07-13] MEDS: BLOOD SUGAR DIAGNOSTIC STRIP TEST SCH ×4 (06:10→21:37)
[2020-07-13 08:00] VITALS: BP 124/65
[2020-07-13] MEDS: LOSARTAN POTASSIUM 25 MG TABLET PO SCH ×2 (08:45→21:36)
[2020-07-13] MEDS: QUETIAPINE FUMARATE 25MG TABLET PO SCH ×2 (08:46→21:36)
[2020-07-13] MEDS: MUPIROCIN 2% OINT 22GM TOP SCH (08:46)
[2020-07-13] MEDS: NYSTATIN POWDER 15GM TOP SCH ×3 (08:46→16:42)
[2020-07-13] MEDS: INSULIN LISPRO 100 UNITS/ML SUBCUT SCH ×4 (10:10→21:45)
[2020-07-13 12:00] VITALS: BP 104/60
[2020-07-13 16:00] VITALS: BP 101/62
[2020-07-13 20:00] VITALS: BP 113/61
[2020-07-13] MEDS: FAMOTIDINE 20MG TABLET PO SCH (21:36)
[2020-07-14] VITALS: BP 109/70
[2020-07-14 04:00] VITALS: BP 112/71
[2020-07-14] MEDS: BLOOD SUGAR DIAGNOSTIC STRIP TEST SCH ×4 (07:20→21:56)
[2020-07-14 08:00] VITALS: BP 124/69
[2020-07-14] MEDS: QUETIAPINE FUMARATE 25MG TABLET PO SCH ×2 (08:31→21:56)
[2020-07-14] MEDS: LOSARTAN POTASSIUM 25 MG TABLET PO SCH ×2 (08:31→21:56)
[2020-07-14] MEDS: NYSTATIN POWDER 15GM TOP SCH ×3 (08:32→16:23)
[2020-07-14] MEDS: MUPIROCIN 2% OINT 22GM TOP SCH (08:32)
[2020-07-14] MEDS: INSULIN LISPRO 100 UNITS/ML SUBCUT SCH ×4 (08:44→21:00)
[2020-07-14 12:00] VITALS: BP 111/71
[2020-07-14 16:00] VITALS: BP 124/69
[2020-07-14 20:00] VITALS: BP 116/67
[2020-07-14] MEDS: FAMOTIDINE 20MG TABLET PO SCH (21:56)
[2020-07-15] VITALS (7 sets, daily range): BP systolic 116–135; BP diastolic 71–80
[2020-07-15] MEDS: BLOOD SUGAR DIAGNOSTIC STRIP TEST SCH ×4 (06:39→21:19)
[2020-07-15] MEDS: INSULIN LISPRO 100 UNITS/ML SUBCUT SCH ×4 (09:44→21:19)
[2020-07-15] MEDS: QUETIAPINE FUMARATE 25MG TABLET PO SCH ×2 (09:47→20:49)
[2020-07-15] MEDS: MUPIROCIN 2% OINT 22GM TOP SCH (09:47)
[2020-07-15] MEDS: LOSARTAN POTASSIUM 25 MG TABLET PO SCH ×2 (09:47→20:49)
[2020-07-15] MEDS: NYSTATIN POWDER 15GM TOP SCH ×3 (09:48→17:16)
[2020-07-15] MEDS: FAMOTIDINE 20MG TABLET PO SCH (20:49)
[2020-07-16] VITALS: BP 134/88
[2020-07-16 04:00] VITALS: BP 126/88
[2020-07-16] MEDS: BLOOD SUGAR DIAGNOSTIC STRIP TEST SCH ×4 (07:20→21:36)
[2020-07-16] MEDS: INSULIN LISPRO 100 UNITS/ML SUBCUT SCH ×4 (07:50→23:44)
[2020-07-16 08:00] VITALS: BP 128/77
[2020-07-16] MEDS: QUETIAPINE FUMARATE 25MG TABLET PO SCH ×2 (09:17→21:32)
[2020-07-16] MEDS: LOSARTAN POTASSIUM 25 MG TABLET PO SCH ×2 (09:17→21:32)
[2020-07-16] MEDS: MUPIROCIN 2% OINT 22GM TOP SCH (09:20)
[2020-07-16] MEDS: NYSTATIN POWDER 15GM TOP SCH ×2 (09:20→12:20)
[2020-07-16 12:00] VITALS: BP 122/80
[2020-07-16 16:00] VITALS: BP 121/75
[2020-07-16] MEDS: FAMOTIDINE 20MG TABLET PO SCH (21:32)
[2020-07-17] MEDS: BLOOD SUGAR DIAGNOSTIC STRIP TEST SCH ×2 (07:20→12:20)
[2020-07-17] MEDS: INSULIN LISPRO 100 UNITS/ML SUBCUT SCH ×2 (07:50→12:50)
[2020-07-17 08:00] VITALS: BP 137/80
[2020-07-17] MEDS: LOSARTAN POTASSIUM 25 MG TABLET PO SCH (09:14)
[2020-07-17] MEDS: MUPIROCIN 2% OINT 22GM TOP SCH (09:14)
[2020-07-17] MEDS: QUETIAPINE FUMARATE 25MG TABLET PO SCH (09:14)
[2020-07-17 12:00] VITALS: BP 113/71
[2020-07-17 15:11] VITALS: BP 113/71
[2020-07-17 16:00] VITALS: BP 114/80
== END 2020-07-17 16:51 | disposition home or self-care (01) | DRG 870 ==
LOC: ER 17:11 → MICUSO 20:28 → EDBEDREQ 20:43 → EDBEDREQTM 20:43 → 7EST 06-10 07:35 → MICUSO 06-10 08:18 → EDBEDREQ 06-11 17:17 → CVICU 06-12 16:01 → 5EST 06-25 16:46 → 6EST 07-05 11:52
PROVIDERS: ADMIT Internal Medicine; ATTEND Internal Medicine
PROC: 5A1955Z Respiratory Ventilation, Greater than 96 Consecutive Hours (ICD-10-PCS; principal; 2020-06-10)
PROC: 0BH17EZ Insertion of Endotracheal Airway into Trachea, Via Natural or Artificial Opening (ICD-10-PCS; 2020-06-10)
PROC: 02HV33Z Insertion of Infusion Device into Superior Vena Cava, Percutaneous Approach (ICD-10-PCS; 2020-06-15)
PROC: B548ZZA Ultrasonography of Superior Vena Cava, Guidance (ICD-10-PCS; 2020-06-15)
DX: A40.1 Sepsis due to streptococcus, group B (principal); J96.02 Acute respiratory failure with hypercapnia; G93.41 Metabolic encephalopathy; J18.9 Pneumonia, unspecified organism; I50.33 Acute on chronic diastolic (congestive) heart failure; J96.01 Acute respiratory failure with hypoxia; E44.1 Mild protein-calorie malnutrition; N39.0 Urinary tract infection, site not specified; E87.0 Hyperosmolality and hypernatremia; N17.9 Acute kidney failure, unspecified; Z68.42 Body mass index [BMI] 45.0-49.9, adult; I13.0 Hypertensive heart and chronic kidney disease with heart failure and stage 1 through stage 4 chronic kidney disease, or unspecified chronic kidney disease; G47.33 Obstructive sleep apnea (adult) (pediatric); E66.01 Morbid (severe) obesity due to excess calories; E78.5 Hyperlipidemia, unspecified; R65.20 Severe sepsis without septic shock; B37.2 Candidiasis of skin and nail; D69.6 Thrombocytopenia, unspecified; E86.1 Hypovolemia; E11.22 Type 2 diabetes mellitus with diabetic chronic kidney disease; E87.6 Hypokalemia; I87.8 Other specified disorders of veins; Z20.828 Contact with and (suspected) exposure to other viral communicable diseases; E87.70 Fluid overload, unspecified; I25.10 Atherosclerotic heart disease of native coronary artery without angina pectoris; N18.9 Chronic kidney disease, unspecified; Z95.0 Presence of cardiac pacemaker; Z79.899 Other long term (current) drug therapy
CPT/HCPCS: 36415; 36600; 71045; 76937; 78580; 80048; 80053; 80202; 80305; 81003; 82140; 82375; 82728; 82805; 82962; 83605; 83615; 83735; 83880; 84100; 84145; 84443; 84478; 84484; 85025; 85379; 85384; 86140; 87070; 87635; 87804; 90686; 90732; 92610; 93005; 93306; 93923; 93970; 94002; 94003; 94618; 94640; 96374; 97116; 97162; 97530; 99291; A6261; C1893; C9113; J0330; J0692; J0696; J1100; J1120; J1630; J1650; J1815; J1940; J2060; J2250; J2270; J2405; J2704; J2765; J2920; J3010; J3370; J3490; J7050; J7060; J7608